=== PATIENT | male | born 1955 | race Caucasian/White ===

== ENCOUNTER → 2016-12-11 | Outpatient (CLI) | payer BC ==
[~2016-12-11] MED LIST: ASPI81TA21 PO; CAYENNE PEPPER PO; ERGO500037 PO; LEVO175T3 PO; LEVO200T6 PO; OXYC1TAB3 PO
--- NOTE | 2016-12-11 10:14 | DIAGNOSTIC IMAGING REPORT ---
KUB CLINICAL HISTORY: Nephrolithiasis. COMPARISON STUDY: KUB June 10, 2016. FINDINGS: Several small bilateral renal calculi measure up to 3 mm. No ureteral calculi are identified. The bowel gas pattern is normal. A 7 mm round density projecting of the left upper quadrant is unlikely to reflect a renal calculus. IMPRESSION: Small bilateral renal calculi. No ureteral calculi identified. Electronically signed by: Grady Pickens M.D. 12/11/2016 10:13 AM Dictated Date/Time: 12/11/2016 10:10 AM
== END | disposition home or self-care (01) ==
LOC: C.RAD1850 09:42
PROVIDERS: ATTEND Urology
DX: N20.0 Calculus of kidney (principal); N40.1 Benign prostatic hyperplasia with lower urinary tract symptoms

== ENCOUNTER → 2016-12-24 | Outpatient (CLI) | payer BC ==
--- NOTE | 2016-12-24 16:52 | DIAGNOSTIC IMAGING REPORT ---
L-SPINE MIN 4 VIEWS ROUTINE CLINICAL HISTORY: LOW BACK PAIN COMPARISON STUDY: 11/27/2015 FINDINGS: There are moderate multilevel degenerative changes present. There is calcification of posterior longitudinal ligament at the L2-3, L3-4, and L4-5 levels. No fractures or subluxations are visualized. No destructive lesions are evident. The findings remain similar to November 2015. There are equivocal faint renal calculi. IMPRESSION: 1. Moderate multilevel degenerative change. No acute fractures identified 2. Equivocal nephrolithiasis Electronically signed by: Angel Dale M.D. 12/24/2016 4:51 PM Dictated Date/Time: 12/24/2016 4:49 PM
== END | disposition home or self-care (01) ==
LOC: C.RAD1850 16:34
PROVIDERS: ATTEND Family Medicine
DX: M54.5 Low back pain (principal); N20.0 Calculus of kidney

== ENCOUNTER → 2017-01-22 | Outpatient (CLI) | payer BC ==
--- NOTE | 2017-01-28 08:58 | CODING QUERY MEDICAL NECESSITY ---
SUPPORTING DIAGNOSIS NEEDED A supporting diagnosis is required for the test/procedure performed on this patient in order for us to be reimbursed by the patient's insurance. Please provide a supporting diagnosis for the following test/procedure listed below next to the test name along with your signature. *If there is no additional diagnosis for this patient that would support the following test/procedure please document that below next to the test/procedure. Test(s)/Procedure(s) that require a supporting diagnosis: * DXA, BONE DENSITY AXIAL DIAGNOSIS: Provider Signature: Date: Thank you Xiomara [employer] Once completed, please kindly fax back to [phone] For questions please call [phone]
== END | disposition home or self-care (01) ==
LOC: C.MAMM 08:23
PROVIDERS: ATTEND Family Medicine
DX: Z13.820 Encounter for screening for osteoporosis (principal); E03.9 Hypothyroidism, unspecified

== ENCOUNTER → 2017-03-20 | Outpatient (CLI) | payer BC ==
--- NOTE | 2017-03-20 08:31 | DIAGNOSTIC IMAGING REPORT ---
ULTRASOUND TESTES AND SCROTUM CLINICAL HISTORY: Orchalgia. COMPARISON STUDY: No priors. TECHNIQUE: Real-time, grayscale, and color Doppler sonography of the testes and scrotum is performed. Images are reviewed in the transverse and longitudinal planes. FINDINGS: The testes are normal in size and homogeneous in echotexture. The right testis measures 5.0 x 2.3 x 2.9 cm and the left testis measures 3.8 x 3.2 x 2.0 cm. No intratesticular mass is seen. Tubular ectasia of the rete testis is incidentally noted on the right. Testicular blood flow is normal and symmetric. Normal Doppler waveforms are identified in both testes. The epididymal heads are normal in appearance. The right epididymal head measures 1.8 cm in length and the left epididymal head measures 1.2 cm in length. Large right epididymal head cysts measure up to 1.9 cm. A 3 mm epididymal head cyst is noted on the left. There is a small left-sided varicocele which measures up to 3 mm. No right-sided varicocele is seen and no hydrocele is identified. IMPRESSION: 1. Unremarkable sonographic appearance of the testes. 2. There are numerous bilateral epididymal head cysts, right more than left. 3. Small left-sided varicocele. Electronically signed by: Sharif Brady M.D. 03/20/2017 8:30 AM Dictated Date/Time: 03/20/2017 8:27 AM
== END | disposition home or self-care (01) ==
LOC: C.ULTR 07:37
PROVIDERS: ATTEND Urology
DX: N50.819 Testicular pain, unspecified (principal); N50.3 Cyst of epididymis; I86.1 Scrotal varices

== ENCOUNTER 2017-07-30 08:26 | Inpatient (IN) | payer BC ==
[2017-07-09 08:16] VITALS: BMI 36.0
--- NOTE | 2017-07-09 08:57 | PAT Medication Instructions ---
Service Date Jul 09, 2017. Current Home Medication List Aspirin Enteric Coated (Ecotrin Or Generic), 81 MG PO QAM Levothyroxine Sodium (Levothyroxine Sodium), 1 TAB PO UD Levothyroxine Sodium (Levothyroxine Sodium), 1 TAB PO UD Oxycodone Ir (Roxicodone Ir), 5 MG PO Q6H PRN for Pain [Cayenne Pepper Tabs], 300 MG PO QAM Medication Instructions For Your Scheduled Surgery - Hold the following medications 2 weeks prior to surgery: [Cayenne Pepper Tabs], 300 MG PO QAM - Take the following medications the morning of surgery with a sip of water OTHERWISE NOTHING TO EAT OR DRINK AFTER MIDNIGHT: Levothyroxine Sodium (Levothyroxine Sodium) Aspirin Enteric Coated (Ecotrin Or Generic), 81 MG PO QAM Oxycodone Ir (Roxicodone Ir), 5 MG PO Q6H PRN for Pain (may take if needed up to 4 hours prior to surgery) If you have any questions please call us at [phone] or [phone] or [phone]
--- NOTE | 2017-07-09 09:32 | DIAGNOSTIC IMAGING REPORT ---
CHEST 2 VIEWS ROUTINE CLINICAL HISTORY: 62 years-old Male presenting with preadmission chest x-ray. TECHNIQUE: PA and lateral views of the chest were obtained. COMPARISON: 12/26/2015. FINDINGS: Cardiomediastinal silhouette normal. Lungs and pleural spaces clear. Degenerative changes of the thoracic spine. Upper abdomen normal. IMPRESSION: 1. No acute cardiopulmonary disease. Electronically signed by: Alfie Herrera M.D. 07/09/2017 9:31 AM Dictated Date/Time: 07/09/2017 9:30 AM
[2017-07-09 10:05] LABS: BASO % 1.2 %; BASO ABS # 0.08 K/uL (0-0.2); EOS % 1.6 %; EOS ABS # 0.11 K/uL (0-0.5); HEMATOCRIT 45.2 % (42-52); HEMOGLOBIN 15.5 g/dL (14.0-18.0); IG# 0.02 K/uL (0.00-0.02); LYMPH % 26.9 %; LYMPH ABS # 1.86 K/uL (1.2-3.4); MEAN CELL VOLUME 88.5 fL (80-100); MEAN CORPUSCULAR HEMOGLOBIN 30.3 pg (25-34); MEAN CORPUSCULAR HGB CONC 34.3 g/dl (32-36); MEAN PLATELET VOLUME 11.1 fL (7.4-10.4); MONO % 9.1 %; MONO ABS # 0.63 K/uL (0.11-0.59); NEUT % 60.9 %; NEUT ABS # 4.21 K/uL (1.4-6.5); PLATELET COUNT 176 K/uL (130-400); RED CELL DISTRIBUTION WIDTH CV 13.2 % (11.5-14.5); RED CELL DISTRIBUTION WIDTH SD 42.8 fL (36.4-46.3); WHITE BLOOD COUNT 6.91 K/uL (4.8-10.8)
[2017-07-09 10:12] LABS: CREATININE 0.77 mg/dl (0.60-1.40)
--- NOTE | 2017-07-24 23:16 | HISTORY & PHYSICAL EXAMINATION ---
DATE OF ADMISSION: 07/30/2017 CHIEF COMPLAINT: Bilateral knee pain and discomfort, left side greater than right. HISTORY OF PRESENT ILLNESS: The patient is a 62-year-old gentleman from [place], who presents for surgical treatment of his knees. He has a long history of knee problems dating back to 38 years or so ago. He has had both of his knees scoped on 2 different occasions. Over the years, he has developed persistent and progressive bilateral knee pain and discomfort. The left side is actually worse than the right. He has increased pain with weightbearing. The more he walks, the more it hurts. He is having trouble even getting around any significant degree. He has nighttime pain. He would like to proceed with knee replacement surgery. PAST MEDICAL HISTORY: 1. Irregular heart palpitations. 2. Severe sleep apnea with CPAP machine. 3. Hypothyroidism status post thyroid resection. 4. Lumbar spine arthritis. 4. Elevated PSA. PAST SURGICAL HISTORY: Include: 1. Bilateral knee scopes. 2. Thyroid resection for cancer 4 years ago. 3. Kidney stones/lithotripsy x3. ALLERGIES: 1. TRAMADOL, WHICH CAUSES ITCHING. 2. RED DYE. 3. IODINE CONTRAST MATERIAL. CURRENT MEDICINES: Include: 1. Aspirin 81 mg. 2. Motrin 400 mg a day. 3. Cayenne 300 mg a day. 4. Synthroid 175 mcg a day. 5. Oxycodone 5 mg a day as needed for pain. SOCIAL HISTORY: A 62-year-old male. He currently lives in [place]. He is a retired property staff accountant. He does not smoke. FAMILY HISTORY: Significant for heart disease, diabetes, leukemia, thyroid disease. REVIEW OF SYSTEMS: Negative for diabetes, neurologic problems, vascular problems or bleeding disorders. He does have pretty severe sleep apnea. PHYSICAL EXAMINATION: GENERAL: Physical examination reveals a healthy, pleasant, middle-aged male. He looks to be in pretty good health. HEENT: Benign. NECK: Supple. No lymphadenopathy. LUNGS: Clear to auscultation. HEART: Regular rate and rhythm. ABDOMEN: Soft, nontender, nondistended. EXTREMITIES: Grossly neurovascularly intact except as follows: Examination of both knees reveals the patient walks independently. He has varus alignment to both knees with a varus stress bilaterally. He has bony hypertrophy both sides pretty significant. Range of motion on the right is 10-120 and left is 10-125. There is no clinical instability. X-RAYS: X-rays of both knees were reviewed. It shows advanced bilateral knee DJD. He has complete loss of his joint space on both sides. The right side is a bit worse radiographically. He has subchondral sclerosis with tibiofemoral subluxation on both sides. ASSESSMENT: A 62-year-old male with history of multiple knee surgeries in the past with advanced bilateral knee degenerative joint disease. The left side is more symptomatic than right. I do think he is a good candidate to do both knees at the same time. PLAN: We are going to take him to the operating room and do a left total knee replacement. The risks and benefits of this procedure were explained to the patient including but not limited to DVT, PE, , infection, neurological injury, vascular injury, bleeding problem, pain, limited range of motion, stiffness, failure to relief symptoms, incomplete relief of symptoms, need for further surgery in the future, fracture, leg length inequality, nerve palsy, etc. The patient understands and desires to proceed. Informed consent was obtained. We will see how he does with his left knee and we may consider right knee surgery [address] He does have severe sleep apnea. He is going to bring his CPAP machine to the hospital. As far as discharge plans, he is going to be discharged to home using the [employer] program.
[~2017-07-30] VITALS: Ht 182.9 cm; Wt 120.2 kg
[2017-07-30] VITALS (8 sets, daily range): BP systolic 98–129; BP diastolic 3–95; PULSE 52–79; TEMP 36.5–36.8; O2SAT 92–97; Ht 182.9 cm; Wt 120.2 kg
[~2017-07-30 08:26] MED LIST changes: +ACETAMINOPHEN 500 MG TAB PO SCH; +BUPIVACAINE 0.25% 30 ML VIAL ONE; +BUPIVACAINE 0.5 % 5 MG/1 ML PF 10ML VIAL ONE; +CEFAZOLIN 3000MG IV PUSH 15 ML IV SCH; -ERGO500037 PO; +FAMOTIDINE 20 MG TAB PO SCH; +GABAPENTIN 300 MG CAP PO SCH; +LACTATED RINGER'S 1000ML 1,000 ML IV SCH; +LACTATED RINGER'S 1000ML 500 ML IV SCH; +LACTATED RINGER'S 1000ML IV SCH; +SCOPOLAMINE 1.5 MG TDSY TD SCH; +TRANEXAMIC ACID INJ 1,000 MG in SYRINGE 0 ML IV SCH
[2017-07-30] MEDS ORDERED: ATROPINE SULFATE 0.1 MG/ML 5ML SYR IV PRN (09:15)
[2017-07-30] MEDS ORDERED: EpHEDrine SULFATE INJ 50 MG/ML AMP IV PRN (09:15)
[2017-07-30] MEDS ORDERED: ONDANSETRON INJ 2 MG/ML 2 ML VIAL IV PRN (09:15)
--- NOTE | 2017-07-30 10:20 | History & Physical Bridge Note ---
H&P Re-Evaluation Bridge Note: I have examined the patient, reviewed the History & Physical and in the interval since the performance of the History & Physical I have noted the following changes of clinical significance: No changes noted
[2017-07-30] MEDS ORDERED: MIDAZOLAM HCL 1 MG/ML 2ML VIAL ONE ×2 (10:24→12:13)
[2017-07-30] MEDS ORDERED: FENTANYL CITRATE INJ 50 MCG/1 ML 2 ML VIAL ONE (10:24)
[2017-07-30] MEDS ORDERED: LIDOCAINE HCL 2% 2 ML VIAL (20MG/ML) ONE (10:25)
[2017-07-30] MEDS ORDERED: ONDANSETRON INJ 2 MG/ML 2 ML VIAL ONE (10:25)
[2017-07-30] MEDS ORDERED: BACITRACIN 50000 UNIT VIAL ONE (11:19)
[2017-07-30] MEDS ORDERED: BUPIVACAINE LIPOSOME 1/3% 266 MG/20 ML VIAL INFIL ONE (11:19)
[2017-07-30] MEDS ORDERED: SODIUM CHLORIDE 0.9% PF 50 ML VIAL ONE (11:19)
[2017-07-30] MEDS ORDERED: BUPIVACAINE/EPINEPHRINE 0.25% 1:200,000 30 ML VIAL ONE (11:19)
[2017-07-30] MEDS: BUPIVACAINE LIPOSOME 266 MG, BUPIVACAINE/EPINEPHRINE INJ 50 ML, SODIUM CHLORIDE 0.9% PF... INFIL SCH ×6 (13:14→16:12)
--- NOTE | 2017-07-30 13:44 | [facility] Post Operative Brief Note ---
Immediate Operative Summary Operative Date Jul 30, 2017. Pre-Operative Diagnosis Left Knee Degenerative Joint Disease Post-Operative Diagnosis Left Knee Degenerative Joint Disease Procedure(s) Performed Left Total Knee Arthroplasty Surgeon Dr. Thomas Cedillo Senior Licensing Manager Surgeon(s) Yung Galindo PA-c Estimated Blood Loss 50 ML Findings Left Knee DJD Fluids (cc crystalloids) 1600 cc Specimens Permanent Specimen A: Bone and Tissue Left Knee Drains None Anesthesia Spinal Complication(s) None Disposition Recovery Room / PACU
[2017-07-30] MEDS ORDERED: BISACODYL 10 MG SUPP PR PRN (13:45)
[2017-07-30] MEDS ORDERED: ZOLPIDEM TARTRATE 5 MG TAB PO PRN (13:45)
[2017-07-30] MEDS ORDERED: TAMSULOSIN HCL 0.4 MG CAP PO PRN (13:45)
[2017-07-30] MEDS ORDERED: ALUMINUM/MAGNESIUM/SIMETH (MAALOX MAX) 30 ML UDC PO PRN (13:45)
[2017-07-30] MEDS ORDERED: DiphenhydrAMINE HCL 50 MG/ML VIAL IV PRN (13:45)
[2017-07-30] MEDS ORDERED: MAGNESIUM HYDROXIDE SUSP 30 ML UDC PO PRN (13:45)
--- NOTE | 2017-07-30 14:35 | DIAGNOSTIC IMAGING REPORT ---
L KNEE 1 OR 2 VIEWS ROUTINE CLINICAL HISTORY: AP/LATERAL IN PACU LEFT KNEE postoperative pain COMPARISON: None. DISCUSSION: Anatomic alignment status post total left knee arthroplasty. Good contact between prosthetic and underlying bone. Surgical drains are in position. Soft tissue postoperative change IMPRESSION: Anatomic alignment status post total left knee arthroplasty. The above report was generated using voice recognition software. It may contain grammatical, syntax or spelling errors. Electronically signed by: Isaías Gerardo M.D. 07/30/2017 2:34 PM Dictated Date/Time: 07/30/2017 2:33 PM
--- NOTE | 2017-07-30 14:50 | Anesthesiology Progress Note ---
Anesthesia Post Op Note Date & Time Jul 30, 2017 at 14:50 Vital Signs Pain Intensity: 0 Vital Signs Past 12 Hours Date Time Temp Pulse Resp B/P (MAP) Pulse Ox O2 Delivery O2 Flow Rate FiO2 07/30/17 14:40 36.4 54 16 102/61 97 Nasal Cannula 2 07/30/17 14:30 61 16 98/71 97 Nasal Cannula 2 07/30/17 14:20 63 16 121/68 97 Nasal Cannula 2 07/30/17 14:10 69 16 106/91 97 Nasal Cannula 2 07/30/17 14:00 62 16 123/70 97 Nasal Cannula 2 07/30/17 13:54 36.2 65 16 117/69 98 Nasal Cannula 07/30/17 08:47 36.8 79 20 129/95 95 Room Air Notes Mental Status: alert / awake / arousable, participated in evaluation Pt Amnestic to Procedure: Yes Nausea / Vomiting: adequately controlled Pain: adequately controlled Airway Patency, RR, SpO2: stable & adequate BP & HR: stable & adequate Hydration State: stable & adequate Neuraxial Anesthesia: was administered, sensory block is resolving Anesthetic Complications: no major complications apparent
[2017-07-30] MEDS: CHECK SCOPOLAMINE PATCH PLACEMENT SCH (16:11)
--- NOTE | 2017-07-30 16:12 | OPERATIVE REPORT ---
DATE OF OPERATION: 07/30/2017 SURGEON: Thomas Cedillo MD EXTENSION SERVICE ADVISOR: SREEDHAR Treadwell PREOPERATIVE DIAGNOSIS: Left knee degenerative joint disease. POSTOPERATIVE DIAGNOSIS: Same. PROCEDURE PERFORMED: Left cemented posterior stabilized total knee arthroplasty. COMPLICATIONS: None. ESTIMATED BLOOD LOSS: 50 mL. FLUID REPLACEMENT: 1600 mL of crystalloid fluid replacement. TOURNIQUET TIME: 59 minutes at 300 mmHg. ANESTHESIA: Spinal with adductor canal block. OPERATIVE INDICATIONS: The patient is a 62-year-old male who has had a long history of bilateral knee pain and discomfort. He has had both of his knees scoped in the past, but nothing done in the past 30 years. He has developed progressive and persistent increasing bilateral knee pain and discomfort. The left knee was worse than the right clinically, despite the worst radiographic appearance of the right side. He elected to proceed with a left total knee arthroplasty. OPERATIVE IMPLANTS: Operative implants consisted of: 1. Biomet Vanguard size 75 left posterior stabilized femoral component. 2. Biomet size 79 tibial tray. 3. A 10 mm posterior stabilized polyethylene insert. 4. A 34 x 8.5 all poly patella. OPERATIVE PROCEDURE: The patient taken to the operating room, identified and placed on the operating table in supine position. All contact areas were appropriately padded. IV antibiotics were provided by anesthesia team. A spinal anesthetic and adductor canal block had been provided in the holding area. Streeter catheter was placed in sterile fashion. A left thigh tourniquet was then placed and left lower extremity was then prepped and draped in the usual sterile fashion. Left leg was elevated and exsanguinated with Esmarch and tourniquet was placed at 300 mmHg. An anterior approach to the left knee was then performed through a longitudinal incision centered over the patella. Sharp dissection was carried out through the subcutaneous tissue down to the level of the extensor mechanism. A medial parapatellar arthrotomy incision was made. Some subperiosteal dissection was carried out medially. The fat pad was resected from beneath the patellar tendon. The lateral patellofemoral ligament was released. The patella was everted and knee was flexed. The osteophytes were taken off the distal femur. The ACL and PCL were then released from the distal femur and the tibia subluxated anteriorly. The external tibial alignment jig was then placed in the anterior face of the tibia and adjusted 16 mm medially. Proximal tibial cut was made to remove about a millimeter of bone from the most deficient aspect of the tibial plateau. The tibia was then sized to a size 79. Some osteophytes were taken off medial and posteromedially. Attention was then drawn to the femur. The distal femur was entered with a sharp drill. Intramedullary canal was suctioned. A left 6-degree valgus cutting guide was placed. Distal femoral cutting block was pinned in place. Distal femoral cut was made to take an additional 3 mm of bone off the distal femur. The femur was then sized to a size 75. We did downsize this several millimeters. The AP cutting block was pinned parallel to the epicondylar axis, which was 4 degrees of external rotation. The anterior cut, anterior chamfer, posterior cut, and posterior chamfer cuts were made. Box cutting guide was placed and adjusted slightly lateral and the box cut was made. The knee was flexed. The remnants of the medial and lateral menisci were excised. The osteophytes were taken off the posterior aspect of the femur. Trial femoral component was placed. Tibial tray was pinned in maximum external rotation and the drill and stem punch were used to create defect in proximal tibia for the tibial tray. The knee was then trialed and a 10 mm insert fit most appropriately. Attention was then drawn to the patella. The patella was cleaned of all soft tissues. Patellar thickness measured 24 mm in thickness and was cut down to 15. It was sized to a size 34 patella. Lug holes were drilled for a 34 patella. Lateral osteophyte was removed. Patellar button was placed. Knee was taken through range of motion and the patella tracked nicely with no thumbs test. Attention was then drawn toward placement of the permanent components. All trial components were removed. Bone plug was placed in the distal femur to limit blood loss. A double batch of Palacos G cement was mixed. A left size 75 posterior stabilized femoral component, a size 79 tibial tray, 10 mm posterior stabilized polyethylene insert, and a 34 x 8.5 all poly patella were then cemented in place. The knee was brought out into full extension until cement hardened. A final cement check was then performed. Pericapsular tissues were injected with a total of 100 mL of a combination of 20 mL of Exparel, 30 mL of normal saline, and 50 mL of 0.25% Marcaine with epinephrine. The patient did receive 1 gram of tranexamic acid. The tourniquet was then let down for final tourniquet time of 59 minutes. Hemostasis was assured with use of electrocautery. The wound was once again irrigated. The extensor mechanism was then closed with a combination of #1 PDS suture and #1 Vicryl suture in a [id number] fashion. Extensor mechanism was checked and found to be intact. The subcutaneous tissues were then closed with 2-0 Dexon suture in a buried interrupted fashion. Skin was closed skin alyssa. Leg was then cleaned and dried and a sterile dressing of Xeroform, 4 x 4, sterile cast padding and Ed bandage were applied. The patient then transferred to the recovery room in stable condition. The patient tolerated the procedure without complications. All needle and sponge counts were correct at the end of the operation. I attest to the content of the Intraoperative Record and any orders documented therein. Any exception s are noted below.
[2017-07-30] MEDS: D5W AND 1/2NSS + 20MEQ KCL 1,000 ML IV SCH (16:47)
[2017-07-30] MEDS: ACETAMINOPHEN 500 MG TAB PO SCH ×2 (17:40→22:51)
[2017-07-30] MEDS: FERROUS GLUCONATE 324 MG TAB PO SCH (18:01)
[2017-07-30] MEDS: KETOROLAC TROMETHAMINE 30 MG/ML VIAL IV. SCH (18:01)
[2017-07-30] MEDS: CEFAZOLIN IV 2,000 MG in SYRINGE 0 ML IV SCH (20:03)
[2017-07-30] MEDS: OXYCODONE HCL IR 5 MG TAB (IMMEDIATE RELEASE) PO PRN (20:12)
[2017-07-30] MEDS: TAPENTADOL ER 50 MG TABCR PO SCH (21:00)
[2017-07-30] MEDS: SENNA 8.6 MG TAB PO SCH (21:11)
[2017-07-30] MEDS: ASPIRIN 325 MG ECTAB PO SCH (21:11)
[2017-07-30] MEDS: DOCUSATE SODIUM 100 MG CAP PO SCH (21:11)
[2017-07-30] MEDS ORDERED: TRANEXAMIC ACID INJ 1,000 MG in SODIUM CHLORIDE 0.9% 100ML 100 ML IV SCH (22:00)
[2017-07-31] MEDS: CHECK SCOPOLAMINE PATCH PLACEMENT SCH ×4 (00:40→23:28)
[2017-07-31] MEDS: KETOROLAC TROMETHAMINE 30 MG/ML VIAL IV. SCH ×6 (00:43→23:43)
[2017-07-31] MEDS: D5W AND 1/2NSS + 20MEQ KCL 1,000 ML IV SCH ×3 (00:43→15:26)
[2017-07-31 04:15] VITALS: BP 96/59; PULSE 68; TEMP 36.7; O2SAT 92
[2017-07-31] MEDS: CEFAZOLIN IV 2,000 MG in SYRINGE 0 ML IV SCH (04:24)
[2017-07-31] MEDS: ACETAMINOPHEN 500 MG TAB PO SCH ×3 (05:40→20:42)
[2017-07-31] MEDS ORDERED: NURSING DECISION MEDICATION ORDER SCH (05:45)
[2017-07-31] MEDS: LEVOTHYROXINE 175 MCG TAB PO SCH (05:53)
[2017-07-31 06:34] LABS: HEMATOCRIT 38.2 % (42-52); HEMOGLOBIN 12.8 g/dL (14.0-18.0); MEAN CORPUSCULAR HEMOGLOBIN 29.8 pg (25-34); MEAN CORPUSCULAR HGB CONC 33.5 g/dl (32-36); MEAN PLATELET VOLUME 10.9 fL (7.4-10.4); PLATELET COUNT 166 K/uL (130-400); RED CELL DISTRIBUTION WIDTH CV 13.3 % (11.5-14.5); RED CELL DISTRIBUTION WIDTH SD 43.1 fL (36.4-46.3); WHITE BLOOD COUNT 11.29 K/uL (4.8-10.8)
[2017-07-31 06:54] VITALS: BP 100/62; PULSE 66; TEMP 37.1; O2SAT 93
[2017-07-31 07:04] LABS: CREATININE 0.86 mg/dl (0.60-1.40); POTASSIUM 3.9 mmol/L (3.5-5.1)
--- NOTE | 2017-07-31 07:29 | PROGRESS NOTE ---
DATE: 07/31/2017 SUBJECTIVE: A 62-year-old gentleman postop day 1 from a left knee replacement. He is doing pretty well. His pain is controlled. No chest pain or shortness of breath. Not feeling dizzy or lightheaded. OBJECTIVE: VITAL SIGNS: Temperature 37.1. Vital signs stable. GENERAL: Shows a pleasant, middle-aged male. He is sitting up in bed and doing his heel props, looks reasonably comfortable. LUNGS: Clear to auscultation. HEART: Regular rate and rhythm. ABDOMEN: Soft, nontender, nondistended. EXTREMITIES: Grossly neurovascularly intact except as follows: Examination of the left lower extremity reveals the dressing to be clean, dry and intact. Leg is well aligned. He can dorsiflex and plantarflex his foot appropriately. He is neurologically intact. LABORATORY DATA: Hemoglobin 12.8, hematocrit 38.2. Electrolytes are stable. ASSESSMENT: A 62-year-old gentleman postop day 1 from a left knee replacement, doing pretty well. Pain is reasonably well controlled. He is neurologically intact. PLAN: 1. DVT prophylaxis including thigh-high TEDs, SCDs, and aspirin twice a day. 2. PT/OT. Weightbearing as tolerated. Left total knee protocol. 3. Pain control, doing pretty well with current pain regimen. 4. Disposition: He is hoping to be discharged to home likely with some home health once adequately recovered.
[2017-07-31] MEDS: ONDANSETRON INJ 2 MG/ML 2 ML VIAL IV PRN ×2 (07:56→15:33)
[2017-07-31] MEDS: FERROUS GLUCONATE 324 MG TAB PO SCH ×3 (07:57→17:45)
[2017-07-31] MEDS: TAPENTADOL ER 50 MG TABCR PO SCH ×2 (08:23→20:59)
[2017-07-31] MEDS: MULTIVITAMIN TAB PO SCH (08:23)
[2017-07-31] MEDS: DOCUSATE SODIUM 100 MG CAP PO SCH ×2 (08:24→20:59)
[2017-07-31] MEDS: PANTOprazole SOD 40 MG TAB PO SCH (08:25)
[2017-07-31] MEDS: ASPIRIN 325 MG ECTAB PO SCH ×2 (08:25→20:59)
[2017-07-31] MEDS: OXYCODONE HCL IR 5 MG TAB (IMMEDIATE RELEASE) PO PRN ×3 (08:33→19:12)
[2017-07-31] MEDS ORDERED: CAYENNE PEPPER PO SCH (09:00)
[2017-07-31] MEDS: METOCLOPRAMIDE HCL INJ 5 MG/ML 2 ML VIAL IV PRN (11:26)
[2017-07-31 12:36] VITALS: BP 116/77; PULSE 90; TEMP 37.2; O2SAT 93
[2017-07-31] MEDS: MoRPHine SULFATE 2 MG/ML CARP IV PRN ×2 (15:34→18:23)
[2017-07-31 15:48] VITALS: BP 120/75; PULSE 92; TEMP 37.4; O2SAT 92
[2017-07-31] MEDS: SENNA 8.6 MG TAB PO SCH (20:59)
[2017-07-31] MEDS ORDERED: OXYC1TAB3 PO (21:28)
[2017-07-31] MEDS ORDERED: ASPEC325 PO (21:28)
[2017-07-31] MEDS ORDERED: ACET-24 PO (21:28)
--- NOTE | 2017-07-31 21:31 | Discharge Instructions ---
Discharge Instructions Date of Service Jul 31, 2017. Admission Reason for Admission: Left Knee Degenerative Joint Disease Discharge Discharge Diagnosis / Problem: Left Knee Replacement Discharge Goals Goal(s): Decrease discomfort, Improve function, Increase independence, Improve disease control, Therapeutic intervention Activity Recommendations Activity Limitations: per Instructions/Follow-up section . Instructions / Follow-Up Instructions / Follow-Up ACTIVITY RECOMMENDATIONS: Physical Therapy: * You will go to physical therapy three times each week for four to six weeks after your surgery in order to regain your knee range of motion and to retrain your knee to work properly. * It is just as important to make sure you are getting your knee perfectly straight as it is to regain your knee bend. * Taking a pain pill an hour before therapy can help you have a more productive and comfortable therapy session. Home Exercise: * You were shown a series of exercises (heel props, heel slides, etc.) in the hospital. Do these exercises three to four times each day including the exercises you were shown in physical therapy. Walking: * Get up and walk several times each day. For the first four weeks, try not to stand or walk for more than one hour at a time. If you do stand or walk for more than one hour, you will not hurt anything, but your knee and leg will likely swell. * As you feel comfortable, you may change from the walker or crutches to a cane and then to independent walking. MEDICATIONS: New Medicine: * You will likely be taking one or more of these medications: 1. Oxycodone - A quick and shorter-acting pain medication. Take one to two tablets every four to six hours to lessen your pain. 2. Aspirin - Thins your blood to lessen the chance of forming a blood clot. * The most common side effects of pain medicine and iron are nausea and constipation. If nausea or constipation is too much of a problem or if you have any questions about your new medicines or doses, call [facility] at . We will try to help you manage these issues. VERY IMPORTANT TO READ AND REVIEW" Pain: * The immediate post-operative period after knee replacement surgery is often quite painful. * You are given a prescription for pain medicine. You should take it, as directed, when you need it, especially before physical therapy and before going to bed. Pain that interferes with sleep is very common and can last several months. * You will likely need pain medicine for the first four to six weeks. It will not stop all of the pain. The pain will lessen and as you feel better, you may change to milder pain medicine such as Tylenol. * The most common side effects of pain medicine are nausea and constipation, so don't take more than you need. SPECIAL CARE INSTRUCTIONS: TEDs/Elastic Stockings: * The white elastic stockings help limit swelling and prevent blood clots from forming in your legs. The more you wear them, the more they work. * Wear them for six weeks after knee replacement surgery and four weeks after partial knee replacement. Prevention of Infection: * Take antibiotics one hour before any dental cleaning, dental work, urological procedure, gastrointestinal procedure or any invasive surgery in order to prevent your new joint from getting infected. * You may get the antibiotics from the doctor performing the procedure or you may call our office at before and we will call in a prescription to the pharmacy of your choice. Things to Watch For: * Drainage from the incision site that occurs more than one week after your surgery. * Severely increased knee/leg pain or swelling. * Increased redness at the incision site. * Fever above 102 degrees Fahrenheit. * Unusual chest pain or shortness of breath. * Unusual pain or burning with urination. Call [facility] at with any of the above problems or if you have any questions about your medicines or recovery. FOLLOW UP VISIT: Make an appointment to see your doctor for approximately two weeks after surgery for a progress check and staple removal by calling the office at . Current Hospital Diet Patient's current hospital diet: Regular Diet Discharge Diet Recommended Diet: Regular Diet Procedures Procedures Performed: Left Total Knee Arthroplasty Pending Studies Studies pending at discharge: no Medical Emergencies . Who to Call and When: Medical Emergencies: If at any time you feel your situation is an emergency, please call [phone] immediately. . Non-Emergent Contact Non-Emergency issues call your: Surgeon . "Provider Documentation" section prepared by Thomas Cedillo. . VTE Core Measure Inpt VTE Proph given/why not?: Other Anticoagulation, T.E.D. Stockings, SCD's
[2017-07-31 23:11] VITALS: BP 131/81; PULSE 88; TEMP 37.3; O2SAT 92
[2017-08-01] MEDS: ACETAMINOPHEN 500 MG TAB PO SCH (06:00)
[2017-08-01] MEDS: LEVOTHYROXINE 175 MCG TAB PO SCH (06:09)
[2017-08-01] MEDS: KETOROLAC TROMETHAMINE 30 MG/ML VIAL IV. SCH ×2 (06:10→11:30)
[2017-08-01 07:24] VITALS: BP 114/74; PULSE 91; TEMP 37; O2SAT 92
[2017-08-01] MEDS: CHECK SCOPOLAMINE PATCH PLACEMENT SCH (07:33)
[2017-08-01] MEDS: ONDANSETRON INJ 2 MG/ML 2 ML VIAL IV PRN (07:35)
[2017-08-01] MEDS: FERROUS GLUCONATE 324 MG TAB PO SCH ×2 (08:48→10:52)
[2017-08-01] MEDS: MULTIVITAMIN TAB PO SCH (08:49)
[2017-08-01] MEDS: PANTOprazole SOD 40 MG TAB PO SCH (08:49)
[2017-08-01] MEDS: TAPENTADOL ER 50 MG TABCR PO SCH (08:53)
[2017-08-01] MEDS: OXYCODONE HCL IR 5 MG TAB (IMMEDIATE RELEASE) PO PRN (08:55)
[2017-08-01] MEDS: METOCLOPRAMIDE HCL INJ 5 MG/ML 2 ML VIAL IV PRN (09:51)
[2017-08-01] MEDS: ASPIRIN 325 MG ECTAB PO SCH (09:52)
[2017-08-01] MEDS: DOCUSATE SODIUM 100 MG CAP PO SCH (09:52)
[2017-08-01 10:53] VITALS: BP 114/74; PULSE 91; TEMP 37; O2SAT 92
[2017-08-01] MEDS ORDERED: ONDA4TAB10 SL (12:59)
--- NOTE | 2017-08-01 15:14 | PROGRESS NOTE ---
DATE: 08/01/2017 DATE: 08/01/2017 SUBJECTIVE: A 62-year-old gentleman postop day 2 from a left knee replacement, doing pretty well. Quite a bit of thigh pain yesterday but seems to be improved today. No chest pain or shortness of breath. Not feeling dizzy or lightheaded. OBJECTIVE: VITAL SIGNS: Temperature is 37.0. Vital signs stable. PHYSICAL EXAMINATION: GENERAL: Reveals a healthy, pleasant, middle-aged male. He is sitting up in bed, looks pretty comfortable. LUNGS: Clear to auscultation. HEART: Regular rate and rhythm. ABDOMEN: Soft, nontender, nondistended. EXTREMITY EXAMINATION: Grossly neurovascularly intact except as follows: Examination of the left leg reveals the dressing to be clean, dry and intact. Leg is well aligned. Calf is soft and supple. He does have a little soreness in his quad with palpation and a little bit of swelling in this area. Nothing severe and not tense. He is neurologically intact. ASSESSMENT: A 62-year-old male postop day 2 from a left knee replacement, doing well. Pain is controlled. He has had some nausea. PLAN: 1. DVT prophylaxis including thigh-high TEDs, SCDs, and aspirin twice a day. 2. PT/OT. Weight bear as tolerated. Left total knee protocol. 3. Pain control. Doing reasonably well with current pain regimen. 4. Nausea. We are going to send him home on some Zofran. 5. Disposition. He is planning to be discharged home with home health later today.
[2017-08-03] MEDS ORDERED: LEVOTHYROXINE 200 MCG TAB PO SCH (07:00)
== END 2017-08-01 14:18 | disposition home health service (06) | DRG 470 ==
LOC: C.ACU 08:26 → C.3E 13:49 → ENRESERV 15:33
PROVIDERS: ADMIT Orthopaedic Surgery Sports Medicine; ATTEND Orthopaedic Surgery Sports Medicine
PROC: 0SRD0J9 Replacement of Left Knee Joint with Synthetic Substitute, Cemented, Open Approach (ICD-10-PCS; principal; 2017-07-30 11:00)
DX: M17.12 Unilateral primary osteoarthritis, left knee (principal); G47.33 Obstructive sleep apnea (adult) (pediatric); E89.0 Postprocedural hypothyroidism; E66.9 Obesity, unspecified; Z68.36 Body mass index [BMI] 36.0-36.9, adult; Z98.890 Other specified postprocedural states; Z85.850 Personal history of malignant neoplasm of thyroid; Z87.442 Personal history of urinary calculi; Z79.1 Long term (current) use of non-steroidal anti-inflammatories (NSAID); Z79.82 Long term (current) use of aspirin; Z79.899 Other long term (current) drug therapy; Z91.041 Radiographic dye allergy status; Z82.49 Family history of ischemic heart disease and other diseases of the circulatory system; Z83.3 Family history of diabetes mellitus; Z83.49 Family history of other endocrine, nutritional and metabolic diseases; Z80.6 Family history of leukemia

== ENCOUNTER → 2017-08-07 | Outpatient (CLI) | payer BC ==
[~2017-08-07] MED LIST changes: +ACET-24 PO; -ACETAMINOPHEN 500 MG TAB PO SCH; +ASPEC325 PO; -ASPI81TA21 PO; -BUPIVACAINE 0.25% 30 ML VIAL ONE; -BUPIVACAINE 0.5 % 5 MG/1 ML PF 10ML VIAL ONE; -CEFAZOLIN 3000MG IV PUSH 15 ML IV SCH; -FAMOTIDINE 20 MG TAB PO SCH; -GABAPENTIN 300 MG CAP PO SCH; -LACTATED RINGER'S 1000ML 1,000 ML IV SCH; -LACTATED RINGER'S 1000ML 500 ML IV SCH; -LACTATED RINGER'S 1000ML IV SCH; +ONDA4TAB10 SL; -SCOPOLAMINE 1.5 MG TDSY TD SCH; -TRANEXAMIC ACID INJ 1,000 MG in SYRINGE 0 ML IV SCH
--- NOTE | 2017-08-11 09:49 | CODING QUERY NO DIAGNOSIS ---
: 1955 Valid Physician Order Needed A valid physician order must be submitted in order to properly bill for the service(s) provided, including date of service(s), valid diagnosis, and physician signature. If these tests are done on a recurring basis the original physician order must be submitted in order to code and bill for the service(s) provided. Please fax us the original, signed physician order so that we may expedite billing to [phone] DOS 08/07/2017 * Urinalysis * Urine C&S Thank you Qiana Almaguer [facility]
== END | disposition home or self-care (01) ==
LOC: C.LABSPEC 11:54
PROVIDERS: ATTEND Orthopaedic Surgery Sports Medicine
DX: Z01.89 Encounter for other specified special examinations (principal)

== ENCOUNTER → 2017-09-16 | Outpatient (CLI) | payer BC ==
--- NOTE | 2017-09-16 17:31 | DIAGNOSTIC IMAGING REPORT ---
KUB CLINICAL HISTORY: R35.0 Urinary frequency nephrocalcinosis COMPARISON STUDY: 12/11/2016 FINDINGS: Unchanged small calcification of the lower pole left kidney. The upper pole left kidney as well as the bulk of the right kidney obscured by overlying fecal material. No significant paravertebral calcifications. Nonobstructive bowel pattern. IMPRESSION: 1. Limited study due to extensive overlying bowel content. 2. Right kidney is poorly seen 3. Left kidney shows a small unchanging lower pole calcification. The upper pole is not diagnostically identified. The above report was generated using voice recognition software. It may contain grammatical, syntax or spelling errors. Electronically signed by: Isaías Gerardo M.D. 09/16/2017 5:30 PM Dictated Date/Time: 09/16/2017 5:28 PM
== END | disposition home or self-care (01) ==
LOC: C.LAB 16:59
PROVIDERS: ATTEND Nurse Practitioner Adult Health
DX: M54.9 Dorsalgia, unspecified (principal); R35.0 Frequency of micturition

== ENCOUNTER → 2017-09-19 | Outpatient (CLI) | payer BC ==
[2017-09-19 12:33] LABS: BLOOD UREA NITROGEN 13 mg/dl (7-18); CALCIUM 9.3 mg/dl (8.5-10.1); CARBON DIOXIDE 29 mmol/L (21-32); CREATININE 0.85 mg/dl (0.60-1.40); GLUCOSE 111 mg/dl (70-99); POTASSIUM 4.1 mmol/L (3.5-5.1); SODIUM 142 mmol/L (136-145)
== END | disposition home or self-care (01) ==
LOC: C.LAB 10:25
PROVIDERS: ATTEND Nurse Practitioner Adult Health
DX: M54.9 Dorsalgia, unspecified (principal); R35.0 Frequency of micturition

== ENCOUNTER → 2017-09-23 | Outpatient (CLI) | payer BC ==
[~2017-09-23] MED LIST changes: +OPTIRAY 320 IV PRN
--- NOTE | 2017-09-23 08:54 | DIAGNOSTIC IMAGING REPORT ---
ABD/PELVIS COMBO CT DOSE: 2237.74 mGycm HISTORY: Flank pain N40.1 TECHNIQUE: Multiaxial CT images of the abdomen and pelvis were performed pre and post intravenous contrast enhancement. A dose lowering technique was utilized adhering to the principles of ALARA. COMPARISON STUDY: 01/24/2016 FINDINGS: Lung bases are clear. Liver enhances uniformly. 1 cm hypodensity central right hepatic lobe unchanged in the prior study. This may represent a small hepatic cyst. Gallbladder is negative for distention. The unenhanced component of the study shows several nonobstructing renal calcifications bilaterally. The obstructing calculus previously described dilatation of the upper pole collecting system left kidney is no longer appreciated. Renal parapelvic and cortical cysts are stable. Ureters opacify appropriately. There is no evidence for an obstructing calculus. Prostate is mildly enlarged. No significant abdominal pelvic or inguinal adenopathy. Bowel pattern is nonobstructive. Bladder is again midline. No significant pelvic or inguinal adenopathy. IMPRESSION: 1. Bilateral renal nephrocalcinosis. 2. No evidence for an obstructing urinary tract calculus. 3. Bilateral simple renal peripelvic and cortical cysts similar as compared to the prior study. 4. No evidence for hydronephrosis. 5. The obstructing calculus involving the upper pole left kidney on the prior study has passed. The above report was generated using voice recognition software. It may contain grammatical, syntax or spelling errors. Electronically signed by: Isaías Gerardo M.D. 09/23/2017 8:52 AM Dictated Date/Time: 09/23/2017 8:42 AM
== END | disposition home or self-care (01) ==
LOC: C.CTS 08:07
PROVIDERS: ATTEND Nurse Practitioner Adult Health
DX: N40.1 Benign prostatic hyperplasia with lower urinary tract symptoms (principal); E83.59 Other disorders of calcium metabolism; N29 Other disorders of kidney and ureter in diseases classified elsewhere; N28.1 Cyst of kidney, acquired

== ENCOUNTER 2017-11-14 04:49 | Inpatient (IN) | payer BC ==
[2017-11-06 09:39] VITALS: BMI 34.0
--- NOTE | 2017-11-08 10:38 | HISTORY & PHYSICAL EXAMINATION ---
DATE OF ADMISSION: 11/14/2017 CHIEF COMPLAINT: Right knee pain. HISTORY OF PRESENT ILLNESS: The patient is a 62-year-old gentleman who is now a little over 3 months out from a left knee replacement, doing well. He has got a long history of bilateral knee pain and discomfort. He had both knees scoped on multiple different occasions in the past. He had left knee replaced about 3-1/2 months ago and has done well from this. He continues to be bothered by right knee pain. It is global pain. The more he walks, the more it hurts. He is limited by his right knee and would like to have it fixed. Very minimal response to any further conservative care. PAST MEDICAL HISTORY: 1. Irregular heart palpitations. 2. Sleep apnea with CPAP machine. 3. Hypothyroidism, status post resection for cancer. 4. 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 5. Elevated PSA. PAST SURGICAL HISTORY: 1. Bilateral knee scopes in the past. The last one done 30 years ago. 2. Left knee replacement done, 07/30/2017. 3. Thyroid resection 4 years ago at [facility]. 4. Kidney stone/lithotripsy x3. ALLERGIES: TRAMADOL WHICH CAUSES ITCHING. ALSO, DESCRIBES ALLERGY TO RED DYE AND IODINE. CURRENT MEDICINES: Include: 1. Aspirin 81 mg daily. 2. Motrin p.r.n. 3. Cayenne 300 mg. 4. Synthroid 175 mcg a day. SOCIAL HISTORY: A 62-year-old male, lives in [place]. He is a retired intellectual property lawyer. Does not smoke. FAMILY HISTORY: Heart disease, diabetes, leukemia and thyroid disease. REVIEW OF SYSTEMS: Negative for diabetes, neurologic problems, vascular problem, bleeding disorders. No chest pain, no shortness of breath. No history of DVT or PE. PHYSICAL EXAMINATION: GENERAL: Shows a healthy, pleasant middle-aged male, looks to be in good health. HEENT: Benign. NECK: Supple. No lymphadenopathy. LUNGS: Clear to auscultation. HEART: Regular rate and rhythm. ABDOMEN: Soft, nontender, nondistended. EXTREMITIES: Grossly neurovascularly intact except as follows: Examination of the right knee reveals a varus alignment to his knee. He has got bony hypertrophy both medially and laterally, fairly stiff knee with about 10 degree flexion contracture and can only flex to about 95 degrees. No instability. No pain with hip motion. Examination of left knee reveals well-healed incision. Range of motion 0-120. Good straight leg raise. X-RAYS: X-ray of the right knee reviewed. Shows advanced right knee tricompartment DJD. He has complete loss of his joint space in all 3 compartments. He has tibial, femoral subluxation. He has got osteophytes in all 3 compartments. ASSESSMENT: A 62-year-old male, 3-1/2 months out from left knee replacement doing well, with advanced right knee degenerative joint disease. He has failed conservative treatment and would like to have his right knee replaced. PLAN: We will take him to the operating room and do a right total knee replacement. The risks and benefits of this procedure were explained to the patient include but not limited to DVT, PE, , infection, neurological injury, vascular injury, bleeding problem, pain, limited range of motion, stiffness, failure to relieve symptoms, incomplete relief of symptoms, need for further surgery in the future, fracture, leg length inequality, nerve palsy, persistent pain, etc. The patient understands and desires proceed. Informed consent was obtained. We did talk to him to bring the CPAP to the hospital. I am considering not using a tourniquet, as he had quite a bit thigh and tourniquet pain after his previous surgery. He should be able to be discharged to home with either home health or outpatient therapy.
[2017-11-14] VITALS (9 sets, daily range): BP systolic 99–136; BP diastolic 61–84; PULSE 52–78; TEMP 36.4–37; O2SAT 94–97; Ht 182.9 cm; Wt 115.9 kg
[~2017-11-14] VITALS: Ht 182.9 cm; Wt 115.9 kg
[~2017-11-14 04:49] MED LIST changes: -ACET-24 PO; -ASPEC325 PO; +ASPI81TA28 PO; -LEVO200T6 PO; -ONDA4TAB10 SL; -OPTIRAY 320 IV PRN; -OXYC1TAB3 PO
[2017-11-14] MEDS ORDERED: CEFAZOLIN 2000MG IV PUSH 15 ML IV SCH (06:00)
[2017-11-14] MEDS ORDERED: TRANEXAMIC ACID INJ 1,000 MG x 1 Bag Intra-Op IV SCH ×2 (06:00)
[2017-11-14] MEDS ORDERED: ACETAMINOPHEN 500 MG TAB PO SCH (06:00)
[2017-11-14] MEDS ORDERED: LACTATED RINGER'S 1000ML 500 ML IV SCH (06:00)
[2017-11-14] MEDS ORDERED: BUPIVACAINE LIPOSOME 266 MG, BUPIVACAINE/EPINEPHRINE INJ 50 ML, SODIUM CHLORIDE 0.9% PF... INFIL SCH ×3 (06:00)
[2017-11-14] MEDS ORDERED: METOCLOPRAMIDE HCL 10 MG TAB PO SCH (06:00)
[2017-11-14] MEDS ORDERED: GABAPENTIN 600 MG PO SCH (06:00)
[2017-11-14] MEDS ORDERED: LACTATED RINGER'S 1000ML 1,000 ML IV SCH (06:00)
[2017-11-14] MEDS ORDERED: FAMOTIDINE 20 MG TAB PO SCH (06:00)
[2017-11-14] MEDS ORDERED: LACTATED RINGER'S 1000ML IV SCH (06:00)
[2017-11-14] MEDS ORDERED: SCOPOLAMINE 1.5 MG TDSY TD SCH (06:00)
[2017-11-14] MEDS ORDERED: ROPIVACAINE 0.5% 5 MG/ML 30 ML VIAL ONE (06:30)
[2017-11-14] MEDS ORDERED: SODIUM CHLORIDE 0.9% PF 50 ML VIAL ONE (06:30)
[2017-11-14] MEDS ORDERED: BUPIVACAINE 0.5 % 5 MG/1 ML PF 10ML VIAL ONE (06:30)
[2017-11-14] MEDS ORDERED: EpINEphrine INJ 1MG/ML AMP 1 MG/ML AMP ONE (06:31)
[2017-11-14] MEDS ORDERED: BUPIVACAINE LIPOSOME 1/3% 266 MG/20 ML VIAL ONE (06:31)
[2017-11-14] MEDS ORDERED: BUPIVACAINE 0.25% 30 ML VIAL ONE (06:31)
[2017-11-14] MEDS ORDERED: BACITRACIN 50000 UNIT VIAL ONE (06:31)
[2017-11-14] MEDS ORDERED: MIDAZOLAM HCL 1 MG/ML 2ML VIAL ONE ×2 (06:33→06:36)
[2017-11-14] MEDS ORDERED: FENTANYL CITRATE INJ 50 MCG/1 ML 2 ML VIAL ONE (06:33)
[2017-11-14] MEDS ORDERED: PROPOFOL IV EMULSION 10 MG/ML 20 ML VIAL ONE ×2 (07:14→08:35)
[2017-11-14] MEDS ORDERED: ONDANSETRON INJ 2 MG/ML 2 ML VIAL ONE (07:15)
[2017-11-14] MEDS ORDERED: DEXAMETHASONE SOD INJ 4 MG/ML VIAL ONE (07:15)
[2017-11-14] MEDS ORDERED: PHENYLEPHRINE 100MCG/ML 5ML SYR ONE (07:48)
--- NOTE | 2017-11-14 08:49 | [facility] Post Operative Brief Note ---
Immediate Operative Summary Operative Date November 14, 2017. Pre-Operative Diagnosis Right Knee Advanced Degenerative Joint Disease Post-Operative Diagnosis Right Knee Advanced Degenerative Joint Disease Procedure(s) Performed Right Total Knee Arthroplasty Surgeon Dr. Cedillo Cdl Driver Surgeon(s) SREEDHAR Meléndez Estimated Blood Loss 300 ml Findings Consistent with Post-Op Diagnosis Fluids (cc crystalloids) 1200 cc Specimens A. Right Knee Bone and Tissue Drains None Anesthesia Type MAC Spinal Regional Complication(s) none Disposition Accompanied Pt To Recover: no Disposition: Recovery Room / PACU
[2017-11-14] MEDS ORDERED: BISACODYL 10 MG SUPP PR PRN (09:00)
[2017-11-14] MEDS ORDERED: CEFAZOLIN IV 2,000 MG in DEXTROSE 5% 50ML 50 ML IV SCH (09:00)
[2017-11-14] MEDS ORDERED: DiphenhydrAMINE HCL 50 MG/ML VIAL IV PRN (09:00)
[2017-11-14] MEDS ORDERED: TAMSULOSIN HCL 0.4 MG CAP PO PRN (09:00)
[2017-11-14] MEDS ORDERED: ZOLPIDEM TARTRATE 5 MG TAB PO PRN (09:00)
[2017-11-14] MEDS ORDERED: METOCLOPRAMIDE HCL INJ 5 MG/ML 2 ML VIAL IV PRN (09:00)
[2017-11-14] MEDS: DOCUSATE SODIUM 100 MG CAP PO SCH ×2 (09:00→21:53)
[2017-11-14] MEDS ORDERED: MAGNESIUM HYDROXIDE SUSP 30 ML UDC PO PRN (09:00)
[2017-11-14] MEDS: PANTOprazole SOD 40 MG TAB PO SCH (09:00)
[2017-11-14] MEDS ORDERED: ONDANSETRON INJ 2 MG/ML 2 ML VIAL IV PRN (09:00)
[2017-11-14] MEDS: TAPENTADOL ER 50 MG TABCR PO SCH ×2 (09:00→21:51)
[2017-11-14] MEDS ORDERED: SILVER SULFADIAZINE 1% CR 50 GM JAR EXT PRN (09:00)
[2017-11-14] MEDS: MULTIVITAMIN TAB PO SCH (09:00)
[2017-11-14] MEDS ORDERED: ALUMINUM/MAGNESIUM/SIMETH (MAALOX MAX) 30 ML UDC PO PRN (09:00)
[2017-11-14] MEDS: ASPIRIN 81 MG ECTAB PO SCH ×2 (09:00→21:52)
--- NOTE | 2017-11-14 09:15 | DIAGNOSTIC IMAGING REPORT ---
R KNEE 1 OR 2 VIEWS ROUTINE CLINICAL HISTORY: AP/LATERAL IN PACU RIGHT KNEE postoperative COMPARISON: None. DISCUSSION: Anatomic alignment posttotal right knee arthroplasty. Good contact between prosthetic and underlying bone. Expected soft tissue postoperative change. IMPRESSION: Anatomic alignment post total right knee arthroplasty The above report was generated using voice recognition software. It may contain grammatical, syntax or spelling errors. Electronically signed by: Isaías Gerardo M.D. 11/14/2017 9:13 AM Dictated Date/Time: 11/14/2017 9:09 AM
[2017-11-14] MEDS ORDERED: ATROPINE SULFATE 0.1 MG/ML 5ML SYR IV PRN (09:30)
[2017-11-14] MEDS ORDERED: EpHEDrine SULFATE INJ 50 MG/ML AMP IV PRN (09:30)
--- NOTE | 2017-11-14 09:32 | Anesthesiology Progress Note ---
Anesthesia Post Op Note Date & Time November 14, 2017 at 09:31 Vital Signs Pain Intensity: 0 Vital Signs Past 12 Hours Date Time Temp Pulse Resp B/P (MAP) Pulse Ox O2 Delivery O2 Flow Rate FiO2 11/14/17 09:30 36.4 62 18 98/64 96 Nasal Cannula 3 11/14/17 09:20 58 16 100/59 96 Nasal Cannula 3 11/14/17 09:10 70 14 104/57 93 Oxymask 5 11/14/17 09:00 67 14 94/63 95 Oxymask 5 11/14/17 08:54 36.8 70 14 105/64 95 Oxymask 5 11/14/17 05:41 37.0 52 18 136/84 94 Room Air Notes Mental Status: alert / awake / arousable, participated in evaluation Pt Amnestic to Procedure: Yes Nausea / Vomiting: adequately controlled Pain: adequately controlled Airway Patency, RR, SpO2: stable & adequate BP & HR: stable & adequate Hydration State: stable & adequate Neuraxial Anesthesia: was administered, sensory block is resolving Anesthetic Complications: no major complications apparent
[2017-11-14] MEDS: D5W AND 1/2NSS + 20MEQ KCL 1,000 ML IV SCH ×3 (11:27→23:30)
[2017-11-14] MEDS: FERROUS GLUCONATE 324 MG TAB PO SCH ×2 (12:39→17:35)
[2017-11-14] MEDS: KETOROLAC TROMETHAMINE 30 MG/ML VIAL IV. SCH ×3 (12:39→23:31)
[2017-11-14] MEDS: ACETAMINOPHEN 500 MG TAB PO SCH ×2 (13:43→21:52)
--- NOTE | 2017-11-14 14:39 | PROGRESS NOTE ---
DATE: 11/14/2017 SUBJECTIVE: A 62-year-old gentleman postop from a right knee replacement. He is doing well. Really having minimal pain. No chest pain or shortness of breath. Not feeling dizzy or lightheaded. OBJECTIVE: VITAL SIGNS: Temperature is 36.5. Vital signs stable. GENERAL: Physical examination shows a healthy, pleasant, middle-aged male. He is sitting on bed and talking to his . He looks comfortable. LUNGS: Clear to auscultation. HEART: Regular rate and rhythm. ABDOMEN: Soft, nontender, nondistended. EXTREMITIES: Grossly neurovascularly intact except as follows: Examination of the right leg reveals the leg to be well aligned. He can dorsiflex and plantarflex his foot appropriately. He has got brisk refill. X-RAYS: X-ray of the right knee from recovery room reviewed. It shows a right cemented posterior stabilized total knee arthroplasty. Components looked to be in good position. No signs of problems. ASSESSMENT: This is a 62-year-old gentleman postop from a right knee replacement, doing pretty well. Pain is controlled. He is neurologically intact. PLAN: 1. DVT prophylaxis including thigh-high TEDs, SCDs, and aspirin twice a day. 2. PT/OT. Weight bear as tolerated. Right total knee protocol. 3. Pain control, doing well with current pain regimen. 4. IV antibiotics x24 hours. 5. Disposition: Plan to discharge to home with some home health likely once adequately recovered.
[2017-11-14] MEDS: CEFAZOLIN IV 2,000 MG in SYRINGE 0 ML IV SCH ×2 (15:11→21:57)
--- NOTE | 2017-11-14 15:25 | OPERATIVE REPORT ---
DATE OF OPERATION: 11/14/2017 SURGEON: Thomas Cedillo MD GEOLOGICAL TECHNICAL OFFICER: SREEDHAR Treadwell PREOPERATIVE DIAGNOSIS: Right knee degenerative joint disease. POSTOPERATIVE DIAGNOSIS: Same. PROCEDURE PERFORMED: Right cemented posterior stabilized total knee arthroplasty. COMPLICATIONS: None. ESTIMATED BLOOD LOSS: 300 mL. FLUID REPLACEMENT: 1200 mL crystalloid fluid replacement. TOURNIQUET TIME: Not applicable as we did not use tourniquet. ANESTHESIA: Spinal with adductor canal block. DRAINS: None. SPECIMENS: Right knee sent for pathology. OPERATIVE INDICATIONS: The patient is a 62-year-old gentleman who has had a long history of bilateral knee pain and discomfort. He has had a history of multiple knee surgeries in the past. He underwent a left knee replacement 3-1/2 months ago and has done remarkably well from this. He has failed conservative treatment of his right knee and elected to proceed with total knee arthroplasty. OPERATIVE FINDINGS: Operative findings revealed advanced right knee DJD. Extensive grade 4 changes in all 3 compartments with tibial femoral subluxation and severe eburnation both medially and laterally. Large knee joint effusion. Osteophytes in all 3 compartments. OPERATIVE IMPLANTS: Operative implants consisted of: 1. Biomet Vanguard size 75 right posterior stabilized femoral component. 2. Biomet size 79 tibial tray. 3. A 10 mm posterior stabilized polyethylene insert. 4. A 34 x 8.5 all poly patella. OPERATIVE PROCEDURE: The patient was taken to the operating room, identified and placed on the operating table in supine position. All contact areas were appropriately padded. IV antibiotics provided by anesthesia team. A spinal anesthetic and adductor canal block had been provided in the holding area. Streeter catheter was placed in a sterile fashion. Right thigh tourniquet was placed but not used throughout the case as the major problem of pain was with his left leg was felt to be related to the tourniquet. We elected not to use a tourniquet for this case. The right leg was then prepped and draped in usual sterile fashion. An anterior approach of the right knee was then performed through a longitudinal incision centered over the patella. Sharp dissection was carried out through subcutaneous tissues down to the level of the extensor mechanism. A medial parapatellar arthrotomy incision was made. Some subperiosteal dissection was carried out medially. The fat pad was resected from beneath the patellar tendon. The lateral patellofemoral ligament was released. Patella was everted, and the knee was flexed. The ACL was chronically absent. The PCL was released from the distal femur and the tibia subluxated anteriorly. The external tibial alignment jig was then placed in the anterior face of the tibia and adjusted 16 mm medially. Proximal tibial cut was made to remove about a millimeter of bone from most deficient aspect of the medial tibial plateau. Some osteophytes were taken off medial and posteromedially. The tibia was then sized to a size 79. Attention was then drawn to the femur. The distal femur was entered with a sharp drill. The intramedullary canal was suctioned. A right 6-degree valgus cutting guide was placed. Distal femoral cutting block was pinned in place. Distal femoral cut was made to take an additional 3 mm of bone off the distal femur. The femur was then sized to a size 75. We did downsize this significantly. The AP cutting block was pinned parallel to the epicondylar axis, which was 4 degrees of external rotation. The anterior cut, anterior chamfer, posterior cut, posterior chamfer cuts were made. Box cutting guide was placed and adjusted slight lateral and the box cut was made. The knee was flexed. The remnants of the medial and lateral menisci were excised. The osteophytes were taken off the posterior aspect of the femur. A trial femoral component was placed. Tibial tray was pinned in maximum external rotation and drill and stem punch were used to create defect in proximal tibia for the tibial tray. The knee was then trialed and the 10 mm insert fit most appropriately. Attention was then drawn to patella. The patella was cleaned of all soft tissues. Patella thickness measured 24 mm in thickness and was cut down to 14. It was sized to a size 34 patella. Lateral osteophyte was removed. Patella button was placed. Knee was taken through range of motion and patella tracked nicely with no thumbs test. Attention was then drawn toward placing the permanent components. All trial components were removed. Bone plug was placed in the distal femur to limit blood loss. A double batch of Palacos G cement was mixed. A right size 75 posterior stabilized femoral component, size 79 tibial tray, 10 mm posterior stabilized polyethylene insert, and a 34 x 8.5 all poly patella then cemented in place. Knee was brought out into full extension until cement hardened. A final cement check was then performed. Pericapsular tissues were injected with a total of 100 mL of combination of 20 mL of Exparel, 30 mL of normal saline, 50 mL of 0.25% Marcaine with epinephrine. The patient did receive 1 gram of tranexamic acid. We then irrigated one final time. The extensor mechanism was then closed with a combination of #1 PDS suture and #1 Vicryl suture in a [id number] fashion. Extensor mechanism was checked and found to be intact. The subcutaneous tissues were then closed with #2 Dexon suture in a buried interrupted fashion. Skin was closed skin alyssa. Leg was then cleaned and dried and a sterile dressing of Xeroform, 4 x 4, sterile cast padding and Ed bandage were applied. The patient then transferred to the recovery room in stable condition. The patient tolerated the procedure well with no complication. All needle and sponge counts were correct at the end of the operation. I attest to the content of the Intraoperative Record and any orders documented therein. Any exception s are noted below.
[2017-11-14] MEDS ORDERED: TRANEXAMIC ACID INJ 1,000 MG in SODIUM CHLORIDE 0.9% 100ML 100 ML IV ONE (15:30)
[2017-11-14] MEDS: CHECK SCOPOLAMINE PATCH PLACEMENT SCH ×2 (16:03→23:31)
[2017-11-14] MEDS: OXYCODONE HCL IR 5 MG TAB (IMMEDIATE RELEASE) PO PRN ×2 (16:57→21:52)
[2017-11-14] MEDS: SENNA 8.6 MG TAB PO SCH (21:53)
[2017-11-15 03:25] VITALS: BP 97/62; PULSE 61; TEMP 36.5; O2SAT 97
[2017-11-15] MEDS: LEVOTHYROXINE 175 MCG TAB PO SCH (05:56)
[2017-11-15] MEDS: ACETAMINOPHEN 500 MG TAB PO SCH ×3 (05:57→21:00)
[2017-11-15] MEDS: KETOROLAC TROMETHAMINE 30 MG/ML VIAL IV. SCH ×4 (05:58→23:57)
[2017-11-15] MEDS: D5W AND 1/2NSS + 20MEQ KCL 1,000 ML IV SCH (05:59)
[2017-11-15 06:30] LABS: HEMATOCRIT 35.7 % (42-52); MEAN CELL VOLUME 86.2 fL (80-100); MEAN CORPUSCULAR HGB CONC 33.6 g/dl (32-36); MEAN PLATELET VOLUME 10.5 fL (7.4-10.4); PLATELET COUNT 172 K/uL (130-400); RED CELL DISTRIBUTION WIDTH CV 13.4 % (11.5-14.5); RED CELL DISTRIBUTION WIDTH SD 42.4 fL (36.4-46.3); WHITE BLOOD COUNT 12.89 K/uL (4.8-10.8)
[2017-11-15 07:05] LABS: CALCIUM 7.9 mg/dl (8.5-10.1); CREATININE 0.84 mg/dl (0.60-1.40); POTASSIUM 3.7 mmol/L (3.5-5.1)
[2017-11-15 07:44] VITALS: BP 92/55; PULSE 55; TEMP 36.7; O2SAT 97
--- NOTE | 2017-11-15 07:57 | PROGRESS NOTE ---
DATE: 11/15/2017 SUBJECTIVE: A 62-year-old gentleman postop day 1 from a right knee replacement. He is doing well. His pain is controlled. No chest pain or shortness of breath. Not feeling dizzy or lightheaded. OBJECTIVE: VITAL SIGNS: Temperature 36.5. Vital signs stable. GENERAL: Physical examination shows a pleasant, middle-aged male. He is sitting up in bed, looks pretty comfortable this morning. EXTREMITIES: Examination of the right leg reveals the dressing to be clean, dry, and intact. He can dorsiflex and plantarflex his foot appropriately. He is neurologically intact. LABORATORY DATA: Hemoglobin 12.0, hematocrit 35.7. White cell count 12.89. Electrolytes are stable. ASSESSMENT: A 62-year-old gentleman postop day 1 from right knee replacement, doing pretty well. Pain is controlled. He is neurologically intact. PLAN: 1. DVT prophylaxis including thigh-high TEDs, SCDs, and aspirin twice a day. 2. PT/OT. Weight bear as tolerated. Right total knee protocol. 3. Pain control, doing pretty well with current pain regimen. 4. Disposition: He is planning to be discharged to home with some home health once adequately recovered.
[2017-11-15] MEDS: CHECK SCOPOLAMINE PATCH PLACEMENT SCH ×3 (08:00→23:57)
[2017-11-15] MEDS: DOCUSATE SODIUM 100 MG CAP PO SCH ×2 (08:57→21:00)
[2017-11-15] MEDS: FERROUS GLUCONATE 324 MG TAB PO SCH ×3 (08:57→17:38)
[2017-11-15] MEDS: ASPIRIN 81 MG ECTAB PO SCH ×2 (08:58→21:00)
[2017-11-15] MEDS: MULTIVITAMIN TAB PO SCH (08:58)
[2017-11-15] MEDS: PANTOprazole SOD 40 MG TAB PO SCH (08:59)
[2017-11-15] MEDS: TAPENTADOL ER 50 MG TABCR PO SCH ×2 (08:59→21:00)
[2017-11-15 10:43] VITALS: BP 111/66; PULSE 52; O2SAT 97
[2017-11-15] MEDS: OXYCODONE HCL IR 5 MG TAB (IMMEDIATE RELEASE) PO PRN ×2 (11:29→17:38)
[2017-11-15 12:41] VITALS: BP 124/64; PULSE 57; TEMP 36.8; O2SAT 96
[2017-11-15 15:21] VITALS: BP 117/62; PULSE 72; TEMP 36.8; O2SAT 94
[2017-11-15] MEDS: SENNA 8.6 MG TAB PO SCH (21:00)
[2017-11-15 23:00] VITALS: BP 118/73; PULSE 78; TEMP 37; O2SAT 96
[2017-11-16] MEDS: ACETAMINOPHEN 500 MG TAB PO SCH ×2 (05:30→13:21)
[2017-11-16] MEDS: KETOROLAC TROMETHAMINE 30 MG/ML VIAL IV. SCH (05:30)
[2017-11-16] MEDS: LEVOTHYROXINE 175 MCG TAB PO SCH (05:30)
[2017-11-16 06:41] VITALS: BP 115/67; PULSE 60; TEMP 36.6; O2SAT 95
[2017-11-16] MEDS: CHECK SCOPOLAMINE PATCH PLACEMENT SCH (07:42)
[2017-11-16] MEDS: ASPIRIN 81 MG ECTAB PO SCH (07:43)
[2017-11-16] MEDS: MULTIVITAMIN TAB PO SCH (07:43)
[2017-11-16] MEDS: DOCUSATE SODIUM 100 MG CAP PO SCH (07:43)
[2017-11-16] MEDS: FERROUS GLUCONATE 324 MG TAB PO SCH ×2 (07:43→12:30)
[2017-11-16] MEDS: TAPENTADOL ER 50 MG TABCR PO SCH (07:44)
[2017-11-16] MEDS ORDERED: ASPI-320 PO (07:44)
[2017-11-16] MEDS: PANTOprazole SOD 40 MG TAB PO SCH (07:44)
[2017-11-16] MEDS ORDERED: ACET-24 PO (07:44)
[2017-11-16] MEDS ORDERED: RXC5 PO (07:44)
--- NOTE | 2017-11-16 07:46 | Discharge Instructions ---
Discharge Instructions Date of Service November 16, 2017. Admission Reason for Admission: Right Knee Degenerative Joint Disease, Knee Pain Discharge Discharge Diagnosis / Problem: Right Knee REplacement Discharge Goals Goal(s): Decrease discomfort, Improve function, Increase independence, Improve disease control, Therapeutic intervention Activity Recommendations Activity Limitations: per Instructions/Follow-up section Weightbearing Status: Right weightbearing . Instructions / Follow-Up Instructions / Follow-Up ACTIVITY RECOMMENDATIONS: Physical Therapy: * You will go to physical therapy three times each week for four to six weeks after your surgery in order to regain your knee range of motion and to retrain your knee to work properly. * It is just as important to make sure you are getting your knee perfectly straight as it is to regain your knee bend. * Taking a pain pill an hour before therapy can help you have a more productive and comfortable therapy session. Home Exercise: * You were shown a series of exercises (heel props, heel slides, etc.) in the hospital. Do these exercises three to four times each day including the exercises you were shown in physical therapy. Walking: * Get up and walk several times each day. For the first four weeks, try not to stand or walk for more than one hour at a time. If you do stand or walk for more than one hour, you will not hurt anything, but your knee and leg will likely swell. * As you feel comfortable, you may change from the walker or crutches to a cane and then to independent walking. MEDICATIONS: New Medicine: * You will likely be taking one or more of these medications: 1. Oxycodone - A quick and shorter-acting pain medication. Take one to two tablets every four to six hours to lessen your pain. 2. Aspirin - Thins your blood to lessen the chance of forming a blood clot. * The most common side effects of pain medicine and iron are nausea and constipation. If nausea or constipation is too much of a problem or if you have any questions about your new medicines or doses, call [facility] at [phone]. We will try to help you manage these issues. VERY IMPORTANT TO READ AND REVIEW" Pain: * The immediate post-operative period after knee replacement surgery is often quite painful. * You are given a prescription for pain medicine. You should take it, as directed, when you need it, especially before physical therapy and before going to bed. Pain that interferes with sleep is very common and can last several months. * You will likely need pain medicine for the first four to six weeks. It will not stop all of the pain. The pain will lessen and as you feel better, you may change to milder pain medicine such as Tylenol. * The most common side effects of pain medicine are nausea and constipation, so don't take more than you need. SPECIAL CARE INSTRUCTIONS: TEDs/Elastic Stockings: * The white elastic stockings help limit swelling and prevent blood clots from forming in your legs. The more you wear them, the more they work. * Wear them for six weeks after knee replacement surgery and four weeks after partial knee replacement. Prevention of Infection: * Take antibiotics one hour before any dental cleaning, dental work, urological procedure, gastrointestinal procedure or any invasive surgery in order to prevent your new joint from getting infected. * You may get the antibiotics from the doctor performing the procedure or you may call our office at before and we will call in a prescription to the pharmacy of your choice. Things to Watch For: * Drainage from the incision site that occurs more than one week after your surgery. * Severely increased knee/leg pain or swelling. * Increased redness at the incision site. * Fever above 102 degrees Fahrenheit. * Unusual chest pain or shortness of breath. * Unusual pain or burning with urination. Call [facility] at with any of the above problems or if you have any questions about your medicines or recovery. FOLLOW UP VISIT: Make an appointment to see your doctor for approximately two weeks after surgery for a progress check and staple removal by calling the office at . Current Hospital Diet Patient's current hospital diet: Regular Diet Discharge Diet Recommended Diet: Regular Diet Procedures Procedures Performed: Right Total Knee Arthroplasty Pending Studies Studies pending at discharge: no Medical Emergencies . Who to Call and When: Medical Emergencies: If at any time you feel your situation is an emergency, please call [phone] immediately. . Non-Emergent Contact Non-Emergency issues call your: Surgeon . "Provider Documentation" section prepared by Thomas Cedillo. .
[2017-11-16 08:26] VITALS: BP 133/80; PULSE 71
--- NOTE | 2017-11-16 08:34 | PROGRESS NOTE ---
DATE: 11/16/2017 SUBJECTIVE: A 62-year-old gentleman postop day 2 from right knee replacement. He is doing pretty well. Pretty painful last night, but doing better this morning. No chest pain or shortness of breath. Not feeling dizzy or lightheaded. OBJECTIVE: VITAL SIGNS: Temperature 36.6. Vital signs stable. GENERAL: Physical examination shows a healthy, pleasant, middle-aged male. He is sitting up in bed, and looks pretty comfortable. EXTREMITIES: Examination of the right leg reveals the leg to be well aligned. Dressing is clean, dry and intact. Calf is soft and supple. He can dorsiflex and plantarflex his foot appropriately. ASSESSMENT: A 62-year-old gentleman postop day 2 from right knee replacement, doing reasonably well. PLAN: 1. DVT prophylaxis including thigh-high TEDs, SCDs, and aspirin twice a day. 2. PT/OT. Weight bear as tolerated. Right total knee protocol. 3. Pain control. Doing reasonably well with current pain regimen. 4. Disposition: Plan to discharge to home with home health later today.
[2017-11-16 10:32] VITALS: BP 133/80; PULSE 71; TEMP 36.6; O2SAT 95
[2017-11-16] MEDS: OXYCODONE HCL IR 5 MG TAB (IMMEDIATE RELEASE) PO PRN (11:55)
--- NOTE | 2017-11-18 15:44 | DISCHARGE SUMMARY ---
ADMITTING PHYSICIAN AND SURGEON: Dr. Cedillo. ADMITTING DIAGNOSIS: Right knee degenerative joint disease. SURGERY PERFORMED: Right total knee arthroplasty. SECONDARY DIAGNOSES: Irregular heart palpitations, sleep apnea, hypothyroidism, arthritis, elevated PSA. CONSULTS: None obtained. HISTORY AND PHYSICAL EXAMINATION: Well documented in the patient's chart. HOSPITAL COURSE: The patient was admitted on 11/14/2017 underwent total knee arthroplasty, tolerated the procedure well. There were no complications. He was transferred to the PACU postoperatively and later to the orthopedic for further care. He was given Ancef for antibiotic prophylaxis, REJI stockings, SCDs and aspirin for DVT prophylaxis. Hemoglobin, hematocrit and vital signs were monitored during his hospital stay and remained stable, did not require any blood transfusions. There were no complications. By postoperative day 2 was tolerating a regular diet, pain was controlled with oral pain medicine, he was participating in physical therapy. On postop day 2, he was discharged home, set up with home health services. He was given printed discharge instructions including new prescriptions for extra strength Tylenol, aspirin and oxycodone. Continue his home medications with the exception of his home dose of aspirin which was changed. Continue physical therapy, weightbearing as tolerated, REJI stockings. Follow up in 10-12 days or sooner if there are any problems or concerns.
== END 2017-11-16 14:17 | disposition home health service (06) | DRG 470 ==
LOC: C.ACU 04:49 → C.3E 06:45 → ENRESERV 09:17
PROVIDERS: ADMIT Orthopaedic Surgery Sports Medicine; ATTEND Orthopaedic Surgery Sports Medicine
PROC: 0SRC0J9 Replacement of Right Knee Joint with Synthetic Substitute, Cemented, Open Approach (ICD-10-PCS; principal; 2017-11-14 07:00)
DX: M17.11 Unilateral primary osteoarthritis, right knee (principal); G47.30 Sleep apnea, unspecified; E89.0 Postprocedural hypothyroidism; Z96.652 Presence of left artificial knee joint; Z85.850 Personal history of malignant neoplasm of thyroid; Z87.442 Personal history of urinary calculi; Z79.82 Long term (current) use of aspirin; Z82.49 Family history of ischemic heart disease and other diseases of the circulatory system; Z83.3 Family history of diabetes mellitus; Z83.49 Family history of other endocrine, nutritional and metabolic diseases; Z80.6 Family history of leukemia

== ENCOUNTER 2018-09-18 22:56 | Inpatient (IN) ==
[2018-09-18] MEDS ORDERED: HYDROmorphone INJ 0.5 MG/0.5 ML SYR IV STA (23:08)
[2018-09-18] MEDS ORDERED: ONDANSETRON INJ 2 MG/ML 2 ML VIAL IV STA (23:16)
--- NOTE | 2018-09-18 23:46 | Emergency Department Note ---
Entered by Kinsey Talamantes acting as a scribe for Trey Antonio M.D. History of Present Illness General Chief complaint: Flank Pain Stated complaint: PAIN IN KIDNEYS Source: patient Limitations: no limitations History of Present Illness Provider complaint: flank pain Onset (ago): hour(s) 5 Location: abdomen Radiation: other (groin) Maximum Pain Intensity: 10 Associated symptoms: + diaphoresis and + nausea/vomiting Treatments prior to arrival: other (Percocet ) The patient is a 63 year old male who presents to the Emergency Room with complaints of flank pain that began 5 hours prior to arrival. The patient states that the pain radiated to his groin. The patient states that he has nausea, vomiting, diaphoresis, ad kidney pain. The patient states that he can't keep food down. The patient states that he had a Lithotripsy earlier in the day prior to arrival and states that he was discharged home with no pain. The patient states that he took a Percocet prior to arrival but states it didn't relieve his pain. Home Medications Home Medications Medication Instructions Recorded Confirmed Type aspirin [Aspirin Low Dose] 162 mg PO QAM 04/01/18 09/18/18 History levothyroxine 175 mcg PO QAM 04/01/18 09/18/18 History oxycodone 5 mg PO Q6H PRN 09/09/18 09/18/18 History oxycodone-acetaminophen 1 tab PO Q6H PRN #20 tab 09/18/18 09/18/18 Rx Allergies Allergy/AdvReac Type Severity Reaction Status Date / Time Sulfa (Sulfonamide Allergy Intermediate Rash Verified 09/18/18 23:36 Antibiotics) red dye Allergy Unknown RED DYE 40 Verified 09/18/18 23:36 -BLURRED VISION tramadol Allergy Unknown ITCHING Verified 09/18/18 23:36 Past Med/Surg History Social History Preferred Language: Romanian Communication Ability: Effective Director Of Nuclear Medicine Required: No Beliefs That Will Affect Care: None marital status: Current Living Situation: Spouse Other Information That Helps Us Care for You: No Feels Safe at Home: Yes Safety Concerns: Feels Safe At This Time Smoking Status: Never smoker Hx Alcohol Use: No Hx Substance Use: No Review of Systems See HPI for pertinent positives & negatives. and A total of 10 systems reviewed and were otherwise negative Physical Exam Vital Signs Vital Signs - 24 hr 09/18/18 23:04 03/09/19 00:43 09/19/18 02:30 Temperature 36.7 C Temperature Source Oral Sepsis Recent Fever Within 48 Hours No Sepsis Action Taken by Nursing No Action Required Pulse Rate 94 H Pulse Rate [Apical] Pulse Rate [Right Brachial] Pulse Rate [Right] 85 64 Pulse Rhythm Pulse Rhythm [Apical] Pulse Rhythm [Right Brachial] Pulse Rhythm [Right] Regular Regular Pulse Strength [Apical] Pulse Strength [Right Brachial] Pulse Strength [Right] Normal Normal Respiratory Rate 18 16 16 Respiratory Effort / Characteristics Non-Labored Non-Labored Spontaneous Non-Labored Respiratory Depth Normal Normal Normal Respiratory Pattern Regular Regular Blood Pressure 144/90 H Blood Pressure [Right Arm] 140/79 148/89 H Blood Pressure Mean 108 Blood Pressure Mean [Right Arm] 99 108 Blood Pressure Position [Right Arm] Sitting Pulse Oximetry 96 95 99 Oxygen Delivery Method Room Air Room Air Room Air 09/19/18 03:07 09/19/18 03:08 09/19/18 04:01 Temperature Temperature Source Sepsis Recent Fever Within 48 Hours Sepsis Action Taken by Nursing Pulse Rate 65 58 L Pulse Rate [Apical] Pulse Rate [Right Brachial] Pulse Rate [Right] 65 Pulse Rhythm Regular Pulse Rhythm [Apical] Pulse Rhythm [Right Brachial] Pulse Rhythm [Right] Regular Pulse Strength [Apical] Pulse Strength [Right Brachial] Pulse Strength [Right] Normal Respiratory Rate 16 16 16 Respiratory Effort / Characteristics Non-Labored Respiratory Depth Normal Respiratory Pattern Regular Blood Pressure 140/88 Blood Pressure [Right Arm] 149/90 H Blood Pressure Mean Blood Pressure Mean [Right Arm] 109 Blood Pressure Position [Right Arm] Pulse Oximetry 99 98 98 Oxygen Delivery Method Room Air Room Air Room Air 09/19/18 04:15 09/19/18 07:50 09/19/18 12:06 Temperature 36.9 C 36.6 C 36.5 C Temperature Source Oral Oral Oral Sepsis Recent Fever Within 48 Hours Sepsis Action Taken by Nursing Pulse Rate Pulse Rate [Apical] 68 72 Pulse Rate [Right Brachial] 80 Pulse Rate [Right] Pulse Rhythm Pulse Rhythm [Apical] Regular Regular Pulse Rhythm [Right Brachial] Regular Pulse Rhythm [Right] Pulse Strength [Apical] Normal Normal Pulse Strength [Right Brachial] Normal Pulse Strength [Right] Respiratory Rate 16 18 18 Respiratory Effort / Characteristics Non-Labored Spontaneous Non-Labored Spontaneous Non-Labored Spontaneous Respiratory Depth Normal Normal Normal Respiratory Pattern Regular Regular Regular Blood Pressure Blood Pressure [Right Arm] 133/82 118/72 108/76 Blood Pressure Mean Blood Pressure Mean [Right Arm] 99 87 86 Blood Pressure Position [Right Arm] Lying Lying Lying Pulse Oximetry 93 92 93 Oxygen Delivery Method Room Air Room Air Room Air GENERAL: Awake, alert, uncomfortable-appearing. HENT: Normocephalic, atraumatic. EYES: Normal conjunctiva. Sclera non-icteric. NECK: Supple. No nuchal rigidity. RESPIRATORY: Clear to auscultation. No wheezes. Normal respiratory effort. CARDIAC: Normal rate. Normal rhythm. Extremities warm and well perfused. GI: Soft, non-distended. Left flank pain. No rebound or guarding. No masses. RECTAL: Deferred. MUSCULOSKELETAL: Atraumatic. Chest examination reveals no tenderness. There is L CVA tenderness to palpation. LOWER EXTREMITIES: Calves are equal size bilaterally and non-tender. No edema NEURO: Normal sensorium. No sensory or motor deficits noted. No facial droop. SKIN: Warm and dry. No jaundice noted. Course 2310: Past medical records reviewed. The patient was evaluated in room C6, and a complete history and physical examination were performed. 0005: I checked on the patient and he states that he is feeling comfortable. Consultations Consultation #1: Dr. Elise - Recommends hospitalist to admit and monitor H/H. Time: 01:58 Consultation #2: Dr. Gerardo Patterson - declined admission. Time: 02:03 Administered Medications Hydromorphone HCl (Dilaudid) 0.5 mg IV Q3H PRN PRN Reason: Pain Stop: 10/03/18 03:51 Last Admin: 09/19/18 05:11 Dose: 0.5 mg Documented by: [id number] Prochlorperazine 10 mg/ (Syringe) 10 mls @ 5 mls/min IV Q6H PRN PRN Reason: Nausea And Vomiting Stop: 10/19/18 04:29 Last Admin: 09/19/18 05:12 Dose: 5 mls/min Documented by: [id number] Levothyroxine Sodium (Synthroid) 175 mcg PO DAILYBB OPHELIA Stop: 10/19/18 06:59 Last Admin: 09/19/18 07:18 Dose: 175 mcg Documented by: [id number] Oxycodone HCl (Roxicodone Immediate Rel) 10 mg PO Q6 PRN PRN Reason: Pain Stop: 10/03/18 06:42 Last Admin: 09/19/18 10:39 Dose: 10 mg Documented by: [id number] Discontinued Medications Hydromorphone HCl (Dilaudid) 0.5 mg IV NOW STA Stop: 09/18/18 23:09 Last Admin: 09/18/18 23:25 Dose: 0.5 mg Documented by: [id number] Hydromorphone HCl (Dilaudid) 1 mg IV NOW STA Stop: 09/19/18 01:57 Last Admin: 09/19/18 02:01 Dose: 1 mg Documented by: [id number] Ondansetron HCl (Zofran) 4 mg IV NOW STA Stop: 09/18/18 23:17 Last Admin: 09/18/18 23:26 Dose: 4 mg Documented by: [id number] Ondansetron HCl (Zofran) 4 mg IV NOW STA Stop: 09/19/18 01:57 Last Admin: 09/19/18 02:01 Dose: 4 mg Documented by: [id number] Medical Decision Making Differential Diagnosis Differential: Renal Colic, Pyelonephritis, Hydronephrosis, Appendicitis, Diverticulitis, Retroperitonea Bleed/Infection, Aortic Pathology, MSK, Neurologic Pathology, amongst other pathologies entertained. Medical Records Attestation: I reviewed the patient's medical records. Home Medications Current Medication List: was personally reviewed by me Laboratory Data Attestation: I reviewed the patient's lab results. Result diagrams: 09/18/18 23:50 09/18/18 23:50 Lab Results 09/18/18 09/18/18 09/18/18 Range/Units 23:30 23:50 23:50 WBC 15.44 H (4.8-10.8) K/uL RBC 4.83 (4.7-6.1) M/uL Hgb 14.5 (14.0-18.0) g/dL POC Hgb (14.0-18.0) g/dl Hct 42.6 (42-52) % POC Hct (42-52) % MCV 88.2 (80-100) fL MCH 30.0 (25-34) pg MCHC 34.0 (32-36) g/dL RDW Std Deviation 43.4 (36.4-46.3) fL RDW Coeff of Makayla 13.5 (11.5-14.5) % Plt Count 195 (130-400) K/uL MPV 11.2 H (7.4-10.4) fL Immature Gran % (Auto) 0.3 % Neut % (Auto) 88.9 % Lymph % (Auto) 4.7 % [place] % (Auto) 6.0 % Eos % (Auto) 0.0 % Baso % (Auto) 0.1 % Immature Gran # (Auto) 0.04 H (0.00-0.02) K/uL Neut # (Auto) 13.75 H (1.4-6.5) K/uL Lymph # (Auto) 0.72 L (1.2-3.4) K/uL [place] # (Auto) 0.92 H (0.11-0.59) K/uL Eos # (Auto) 0.00 (0-0.5) K/uL Baso # (Auto) 0.01 (0-0.2) K/uL POC Sodium (135-144) mEq/L Sodium 139 (136-145) mmol/L POC Potassium (3.3-5.0) mEq/L Potassium 3.7 (3.5-5.1) mmol/L POC Chloride (101-112) mEq/L Chloride 106 (98-107) mmol/L Carbon Dioxide 24 (21-32) mmol/L POC Total CO2 (24-31) mEq/l Anion Gap 9.0 (3-11) POC Anion Gap (16-25) mmol/L POC BUN (7-18) mg/dl BUN 12 (7-18) mg/dl Creatinine 1.09 (0.6-1.4) mg/dl POC Creatinine (0.6-1.3) mg/dl Est Cr Clr Drug Dosing 90.6 ml/min Est GFR ( Amer) 82.7 Est GFR (Non-Af Amer) 71.4 BUN/Creatinine Ratio 10.6 (10-20) Glucose 136 H (70-99) mg/dl POC Glucose (other) (70-99) mg/dl Calcium 8.6 (8.5-10.1) mg/dl POC Ioniz Calcium Clara (1.12-1.32) mmol/l Total Bilirubin 0.5 (0.2-1) mg/dl AST 16 (15-37) U/L ALT 40 (12-78) U/L Alkaline Phosphatase 72 (45-117) U/L Total Protein 7.4 (6.4-8.2) gm/dl Albumin 3.6 (3.4-5.0) gm/dl Globulin 3.8 (2.5-4.0) gm/dl Albumin/Globulin Ratio 0.9 (0.9-2) Lipase 69 L (73-393) U/L Urine Color Yellow Urine Appearance Clear (Clear) Urine pH 5.5 (4.5-7.5) Ur Specific [place] 1.022 (1.000-1.030) Urine Protein Negative (Negative) Urine Glucose (UA) Negative (Negative) Urine Ketones Negative (Negative) Urine Blood 3+ H (Negative) Urine Nitrite Negative (Negative) Urine Bilirubin Negative (Negative) Urine Urobilinogen Negative (Negative) Ur Leukocyte Esterase Negative (Negative) Urine WBC (Auto) 1-5 (0-5) /hpf Urine RBC (Auto) >30 H (0-4) /hpf U Hyaline Cast (Auto) 0 (0-5) /lpf U Epithel Cells (Auto) 0-5 (0-5) /lpf Urine Bacteria (Auto) Negative (Negative) 09/19/18 Range/Units 00:02 WBC (4.8-10.8) K/uL RBC (4.7-6.1) M/uL Hgb (14.0-18.0) g/dL POC Hgb 14.3 (14.0-18.0) g/dl Hct (42-52) % POC Hct 42 (42-52) % MCV (80-100) fL MCH (25-34) pg MCHC (32-36) g/dL RDW Std Deviation (36.4-46.3) fL RDW Coeff of Makayla (11.5-14.5) % Plt Count (130-400) K/uL MPV (7.4-10.4) fL Immature Gran % (Auto) % Neut % (Auto) % Lymph % (Auto) % [place] % (Auto) % Eos % (Auto) % Baso % (Auto) % Immature Gran # (Auto) (0.00-0.02) K/uL Neut # (Auto) (1.4-6.5) K/uL Lymph # (Auto) (1.2-3.4) K/uL [place] # (Auto) (0.11-0.59) K/uL Eos # (Auto) (0-0.5) K/uL Baso # (Auto) (0-0.2) K/uL POC Sodium 140 (135-144) mEq/L Sodium (136-145) mmol/L POC Potassium 3.6 (3.3-5.0) mEq/L Potassium (3.5-5.1) mmol/L POC Chloride 102 (101-112) mEq/L Chloride (98-107) mmol/L Carbon Dioxide (21-32) mmol/L POC Total CO2 23 L (24-31) mEq/l Anion Gap (3-11) POC Anion Gap 19.0 (16-25) mmol/L POC BUN 11 (7-18) mg/dl BUN (7-18) mg/dl Creatinine (0.6-1.4) mg/dl POC Creatinine 1.0 (0.6-1.3) mg/dl Est Cr Clr Drug Dosing ml/min Est GFR ( Amer) Est GFR (Non-Af Amer) BUN/Creatinine Ratio (10-20) Glucose (70-99) mg/dl POC Glucose (other) 143 H (70-99) mg/dl Calcium (8.5-10.1) mg/dl POC Ioniz Calcium [place] 1.16 (1.12-1.32) mmol/l Total Bilirubin (0.2-1) mg/dl AST (15-37) U/L ALT (12-78) U/L Alkaline Phosphatase (45-117) U/L Total Protein (6.4-8.2) gm/dl Albumin (3.4-5.0) gm/dl Globulin (2.5-4.0) gm/dl Albumin/Globulin Ratio (0.9-2) Lipase (73-393) U/L Urine Color Urine Appearance (Clear) Urine pH (4.5-7.5) Ur Specific [place] (1.000-1.030) Urine Protein (Negative) Urine Glucose (UA) (Negative) Urine Ketones (Negative) Urine Blood (Negative) Urine Nitrite (Negative) Urine Bilirubin (Negative) Urine Urobilinogen (Negative) Ur Leukocyte Esterase (Negative) Urine WBC (Auto) (0-5) /hpf Urine RBC (Auto) (0-4) /hpf U Hyaline Cast (Auto) (0-5) /lpf U Epithel Cells (Auto) (0-5) /lpf Urine Bacteria (Auto) (Negative) Imaging Data Radiologist's Impression: Large left perinephric hemorrhage around the entire kidney measuring around 14 x 8.5 x 2.5 cm and cannot exclude page kidney Left perinephric and retroperitoneal stranding and edema may be reactive, hemorrhage with forniceal rupture not excluded Small stones dependently the within the left renal pelvis No left hydronephrosis A couple of tiny stones at the distal ureter and left UVJ Tiny stones dependently within the bladder Small nonobstructing right intrarenal stones Hepatic steatosis Hepatic and renal cysts Basilar atelectasis No bowel dilation or free air Normal caliber appendix without secondary signs Dr. Twin Irvin MD. [facility] Prescription Drug Monitoring [place] Drug Monitoring Program reviewed and no issues identified Blood Pressure Blood Pressure Findings: Elevated blood pressure Blood Pressure Disposition: elevated BP felt to be situational MDM Narrative 63-year-old gentleman history of kidney stones presenting today with a complaint of flank/kidney pain. Lithotripsy today for this. Has had multiple in the past without issue but did do a severe left flank pain with occasional radiation into his groin. Denies any new trauma or fevers. Nausea and vomiting and again severe pain refractory to Percocet. Given additional pain and antiemetic medicine. Basic laboratory studies were completed. Doubt this is cardiac. Lower suspicion this is acute PE, pancreatitis, or hepatitis. CT the abdomen pelvis was completed to evaluate for any significant injury to the kidney or bleeding. Urinalysis completed. Seems unlikely to be acutely infectious. No evidence of acute urinary retention. Do not believe it is testicular in nature. Some Zofran and Dilaudid given to the patient who was then comfortable here. Laboratory studies are unremarkable other than a leukocytosis of 15. I believe is reactive. No evidence of significant anemia, Hgb 14. CT scan showed evidence of a left-sided perinephric hematoma. Urology was consulted/contacted and discussed this case with . Recommended admission to the hospitalist and repeat hemoglobin in the morning. Patient is not currently on anticoagulation or antiplatelet agents. Given additional pain and antinausea medicine here. Patient updated. Hospitalist contacted who had concerns regarding medical admission. Dr. Elise re-contacted who discussed the case with Dr. Patterson. Admitted. Impression & Plan Perinephric hematoma Discharge Plan Visit Data *Final* Discharge Date/Time: 09/19/18 04:01 Chief Complaint: Flank Pain Stated Complaint: PAIN IN KIDNEYS ED Provider: Trey Antonio Discharge Problem: Perinephric hematoma Patient Disposition: Admitted As Inpatient Condition: Fair Discharge Instructions Interventions: ED Discharge Assessment Last Done: 09/19/18 04:01 The scribe's documentation has been prepared under my direction and personally reviewed by me in its entirety. I confirm that the note above accurately reflects all work, treatment, procedures, and medical decision making performed by me.
[2018-09-19 00:04] LABS: Appearance Urine Clear (Clear); Bacteria Urine Automated Negative (Negative); Bilirubin Urine Negative (Negative); Blood Urine 3+ (Negative); Cast Urine Automated 0 /lpf (0-5); Color Urine Yellow; Epithelial Cell Urine Auto 0-5 /lpf (0-5); Glucose Urine UA Negative (Negative); Ketones Urine Negative (Negative); Leukocyte Esterase Urine Negative (Negative); Nitrite Urine Negative (Negative); Protein Urine Negative (Negative); RBC Urine Automated >30 /hpf (0-4); Specific Gravity Urine 1.022 (1.000-1.030); Urobilinogen Urine Negative (Negative); pH Urine 5.5 (4.5-7.5)
[2018-09-19 00:07] LABS: Basophils # (auto) 0.01 K/uL (0-0.2); Basophils % (auto) 0.1 %; Hematocrit (blood only) 42.6 % (42-52); Hemoglobin 14.5 g/dL (14.0-18.0); Immature Granulocytes # (auto) 0.04 K/uL (0.00-0.02); Immature Granulocytes % (auto) 0.3 %; Lymphocytes # (auto) 0.72 K/uL (1.2-3.4); Lymphocytes % (auto) 4.7 %; Mean Corpuscular Volume 88.2 fL (80-100); Mean Platelet Volume 11.2 fL (7.4-10.4); Monocytes # (auto) 0.92 K/uL (0.11-0.59); Neutrophils # (auto) 13.75 K/uL (1.4-6.5); Neutrophils % (auto) 88.9 %; Platelet Count 195 K/uL (130-400); RDW Coefficient of Variation 13.5 % (11.5-14.5); RDW Standard Deviation 43.4 fL (36.4-46.3); Red Blood Count 4.83 M/uL (4.7-6.1); White Blood Count 15.44 K/uL (4.8-10.8)
[2018-09-19 00:14] LABS: iSTAT Hemoglobin 14.3 g/dl (14.0-18.0); iSTAT Ionized Calcium 1.16 mmol/l (1.12-1.32); iSTAT Potassium 3.6 mEq/L (3.3-5.0)
[2018-09-19 00:26] LABS: Albumin Level 3.6 gm/dl (3.4-5.0); BUN Creatinine Ratio 10.6 (10-20); Calcium 8.6 mg/dl (8.5-10.1); Creatinine Clr Calc Pharmacy 90.6 ml/min; Est GFR (African American) 82.7; Est GFR (Non-African American) 71.4; Potassium 3.7 mmol/L (3.5-5.1)
[2018-09-19 00:28] LABS: Albumin Globulin Ratio 0.9 (0.9-2); Bilirubin,Total 0.5 mg/dl (0.2-1); Globulin 3.8 gm/dl (2.5-4.0); Total Protein 7.4 gm/dl (6.4-8.2)
[2018-09-19] MEDS ORDERED: ONDANSETRON INJ 2 MG/ML 2 ML VIAL IV STA (01:56)
[2018-09-19] MEDS ORDERED: HYDROmorphone INJ 1 MG/ML SYRINGE IV STA (01:56)
--- NOTE | 2018-09-19 03:27 | History & Physical Report ---
Date of Service September 19, 2018 Assessment & Plan (1) Perinephric hematoma: Large left perinephric hematoma/status post lithotripsy for kidney stones-- Admit to medical surgical floor for pain control. Hold aspirin. Tylenol 1 g IV every 8 hours as needed mild pain or temperature. Increase oxycodone from 5-10 mg p.o. every 4 hours as needed for moderate pain. Dilaudid 0.5 mg IV every 3 hours as needed severe pain. Serial CBC with differential and chemistry profile. Consult urology Dr. Elise Present on Admission?: Yes (2) History of kidney stones: As above. Present on Admission?: Yes (3) Hypothyroidism (acquired): Continue levothyroxine 125 mcg p.o. every morning. Present on Admission?: Yes History of Present Illness Chief Complaint: The patient presents to the emergency department with worsening flank pain that began 5 hours prior to arrival. Primary Care Provider: Finesse Kilgore MD The patient is a 63-year-old male who presents to the emergency department with worsening left-sided flank pain, nausea, vomiting, and sweats that began shortly after lithotripsy earlier in the day. He did try to take a Percocet but reports that the medication did not control his pain. Dr. Elise was initially contacted by the emergency department, and then I spoke with him, and he asked that the patient be admitted to the medical service for pain control and that he would see the patient in morning. Allergies Allergy/AdvReac Type Severity Reaction Status Date / Time Sulfa (Sulfonamide Allergy Intermediate Rash Verified 09/18/18 23:36 Antibiotics) red dye Allergy Unknown RED DYE 40 Verified 09/18/18 23:36 -BLURRED VISION tramadol Allergy Unknown ITCHING Verified 09/18/18 23:36 Home Medications Home Medications Medication Instructions Recorded Confirmed Type aspirin [Aspirin Low Dose] 162 mg PO QAM 04/01/18 09/18/18 History levothyroxine 175 mcg PO QAM 04/01/18 09/18/18 History oxycodone 5 mg PO Q6H PRN 09/09/18 09/18/18 History oxycodone-acetaminophen 1 tab PO Q6H PRN #20 tab 09/18/18 09/18/18 Rx Past Med/Surg History Social History Preferred Language: Mauritanian Communication Ability: Effective Beliefs That Will Affect Care: None marital status: Current Living Situation: Spouse Feels Safe at Home: Yes Smoking Status: Never smoker Hx Alcohol Use: No Hx Substance Use: No Review of Systems The patient denies chest pain, palpitations, shortness of breath, dyspnea on exertion, cough, lower extremity swelling, sore throat, fatigue, diarrhea , constipation, blood in stool, lightheadedness, dizziness, headache, memory loss, loss of consciousness, rash, imbalance, focal or generalized weakness, numbness or tingling in arms or legs, generalized arthralgias or myalgias, neck pain, or night sweats. The review of systems is otherwise negative other than for that already noted above, and at least 10 systems have been reviewed. Physical Exam Vital Signs (Past 24 Hours): Last Vital Signs Temp 36.7 C 09/18/18 23:04 Pulse 65 09/19/18 03:08 Resp 16 09/19/18 03:08 BP 149/90 H 09/19/18 03:07 Pulse Ox 98 09/19/18 03:08 Physical Exam: The patient is awake, alert and oriented 3, well developed and well nourished, normocephalic and atraumatic, lying in bed and in no acute distress. HEENT--PERRL, EOMI, mucous membranes and oropharynx dry. Neck--supple. No JVD. No bruits. Thyroid normal, trachea midline, no adenopathy. Heart--normal S1 and S2. No murmurs, rubs or gallops. Lungs--clear bilaterally, no respiratory distress, no accessory muscle use. Abdomen--normal bowel sounds and soft. Nontender. Nondistended. Obese. Extremities--no cyanosis or clubbing. No edema. There are good distal pulses b/l. Dermatologic--normal skin turgor, normal color, no abnormal lymph nodes, no rash. Neurologic--cranial nerves II through XII grossly intact. Rheumatologic--normal range of motion. Psychiatric--normal affect. Results & Data Laboratory Results Laboratory Results WBC 15.44 K/uL (4.8-10.8) H 09/18/18 23:50 RBC 4.83 M/uL (4.7-6.1) 09/18/18 23:50 Hgb 14.5 g/dL (14.0-18.0) 09/18/18 23:50 POC Hgb 14.3 g/dl (14.0-18.0) 09/19/18 00:02 Hct 42.6 % (42-52) 09/18/18 23:50 POC Hct 42 % (42-52) 09/19/18 00:02 MCV 88.2 fL (80-100) 09/18/18 23:50 MCH 30.0 pg (25-34) 09/18/18 23:50 MCHC 34.0 g/dL (32-36) 09/18/18 23:50 RDW Std Deviation 43.4 fL (36.4-46.3) 09/18/18 23:50 RDW Coeff of Makayla 13.5 % (11.5-14.5) 09/18/18 23:50 Plt Count 195 K/uL (130-400) 09/18/18 23:50 MPV 11.2 fL (7.4-10.4) H 09/18/18 23:50 Immature Gran % (Auto) 0.3 % 09/18/18 23:50 Neut % (Auto) 88.9 % 09/18/18 23:50 Lymph % (Auto) 4.7 % 09/18/18 23:50 [place] % (Auto) 6.0 % 09/18/18 23:50 Eos % (Auto) 0.0 % 09/18/18 23:50 Baso % (Auto) 0.1 % 09/18/18 23:50 Immature Gran # (Auto) 0.04 K/uL (0.00-0.02) H 09/18/18 23:50 Neut # (Auto) 13.75 K/uL (1.4-6.5) H 09/18/18 23:50 Lymph # (Auto) 0.72 K/uL (1.2-3.4) L 09/18/18 23:50 [place] # (Auto) 0.92 K/uL (0.11-0.59) H 09/18/18 23:50 Eos # (Auto) 0.00 K/uL (0-0.5) 09/18/18 23:50 Baso # (Auto) 0.01 K/uL (0-0.2) 09/18/18 23:50 POC Sodium 140 mEq/L (135-144) 09/19/18 00:02 Sodium 139 mmol/L (136-145) 09/18/18 23:50 POC Potassium 3.6 mEq/L (3.3-5.0) 09/19/18 00:02 Potassium 3.7 mmol/L (3.5-5.1) 09/18/18 23:50 POC Chloride 102 mEq/L (101-112) 09/19/18 00:02 Chloride 106 mmol/L (98-107) 09/18/18 23:50 Carbon Dioxide 24 mmol/L (21-32) 09/18/18 23:50 POC Total CO2 23 mEq/l (24-31) L 09/19/18 00:02 Anion Gap 9.0 (3-11) 09/18/18 23:50 POC Anion Gap 19.0 mmol/L (16-25) 09/19/18 00:02 POC BUN 11 mg/dl (7-18) 09/19/18 00:02 BUN 12 mg/dl (7-18) 09/18/18 23:50 Creatinine 1.09 mg/dl (0.6-1.4) 09/18/18 23:50 POC Creatinine 1.0 mg/dl (0.6-1.3) 09/19/18 00:02 Est Cr Clr Drug Dosing 90.6 ml/min 09/18/18 23:50 Est GFR ( Amer) 82.7 09/18/18 23:50 Est GFR (Non-Af Amer) 71.4 09/18/18 23:50 BUN/Creatinine Ratio 10.6 (10-20) 09/18/18 23:50 Glucose 136 mg/dl (70-99) H 09/18/18 23:50 POC Glucose (other) 143 mg/dl (70-99) H 09/19/18 00:02 Calcium 8.6 mg/dl (8.5-10.1) 09/18/18 23:50 POC Ioniz Calcium [place] 1.16 mmol/l (1.12-1.32) 09/19/18 00:02 Total Bilirubin 0.5 mg/dl (0.2-1) 09/18/18 23:50 AST 16 U/L (15-37) 09/18/18 23:50 ALT 40 U/L (12-78) 09/18/18 23:50 Alkaline Phosphatase 72 U/L (45-117) 09/18/18 23:50 Total Protein 7.4 gm/dl (6.4-8.2) 09/18/18 23:50 Albumin 3.6 gm/dl (3.4-5.0) 09/18/18 23:50 Globulin 3.8 gm/dl (2.5-4.0) 09/18/18 23:50 Albumin/Globulin Ratio 0.9 (0.9-2) 09/18/18 23:50 Lipase 69 U/L (73-393) L 09/18/18 23:50 Urine Color Yellow 09/18/18 23:30 Urine Appearance Clear (Clear) 09/18/18 23:30 Urine pH 5.5 (4.5-7.5) 09/18/18 23:30 Ur Specific [place] 1.022 (1.000-1.030) 09/18/18 23:30 Urine Protein Negative (Negative) 09/18/18 23:30 Urine Glucose (UA) Negative (Negative) 09/18/18 23:30 Urine Ketones Negative (Negative) 09/18/18 23:30 Urine Blood 3+ (Negative) H 09/18/18 23:30 Urine Nitrite Negative (Negative) 09/18/18 23:30 Urine Bilirubin Negative (Negative) 09/18/18 23:30 Urine Urobilinogen Negative (Negative) 09/18/18 23:30 Ur Leukocyte Esterase Negative (Negative) 09/18/18 23:30 Urine WBC (Auto) 1-5 /hpf (0-5) 09/18/18 23:30 Urine RBC (Auto) >30 /hpf (0-4) H 09/18/18 23:30 U Hyaline Cast (Auto) 0 /lpf (0-5) 09/18/18 23:30 U Epithel Cells (Auto) 0-5 /lpf (0-5) 09/18/18 23:30 Urine Bacteria (Auto) Negative (Negative) 09/18/18 23:30 Code Status & VTE Plan Code Status Full code VTE Prophylaxis Plan VTE Prophylaxis will be ordered: Yes
[2018-09-19] MEDS ORDERED: HYDROmorphone INJ 0.5 MG/0.5 ML SYR IV PRN (03:52)
--- NOTE | 2018-09-19 03:53 | Urology Consultation ---
Date of Consultation September 19, 2018 Assessment & Plan (1) Perinephric hematoma: Patient is admitted for pain control We will check hematocrit in the morning Antiemetics as needed Hematoma will resolve on its own no treatment needed History of Present Illness History of Present Illness Patient is a 63-year-old white male who is post left renal extracorporeal shockwave lithotripsy yesterday. Patient was discharged home postop but developed left flank pain and gross hematuria. Pain was not controlled with oral pain medication so he came to the emergency room. He had a CT scan done which showed a small left perinephric hematoma. He is also passing some stone fragments down the left ureter. He says he is voiding okay although the urine was bloody. Pain is currently controlled. He did have some nausea and vomiting that is also currently controlled Allergies Allergy/AdvReac Type Severity Reaction Status Date / Time Sulfa (Sulfonamide Allergy Intermediate Rash Verified 09/18/18 23:36 Antibiotics) red dye Allergy Unknown RED DYE 40 Verified 09/18/18 23:36 -BLURRED VISION tramadol Allergy Unknown ITCHING Verified 09/18/18 23:36 Home Medications Home Medications Medication Instructions Recorded Confirmed Type aspirin [Aspirin Low Dose] 162 mg PO QAM 04/01/18 09/18/18 History levothyroxine 175 mcg PO QAM 04/01/18 09/18/18 History oxycodone 5 mg PO Q6H PRN 09/09/18 09/18/18 History oxycodone-acetaminophen 1 tab PO Q6H PRN #20 tab 09/18/18 09/18/18 Rx Patient History Social History Preferred Language: Yakut Communication Ability: Effective Beliefs That Will Affect Care: None marital status: Current Living Situation: Spouse Feels Safe at Home: Yes Smoking Status: Never smoker Hx Alcohol Use: No Hx Substance Use: No Review of Systems Nausea Genitourinary (Male): + hematuria and + flank pain Physical Exam Vital Signs (Past 24 Hours): Last Vital Signs Temp 36.7 C 09/18/18 23:04 Pulse 65 09/19/18 03:08 Resp 16 09/19/18 03:08 BP 149/90 H 09/19/18 03:07 Pulse Ox 98 09/19/18 03:08 Physical Exam: Developed well-nourished white male currently in no acute distress Neurologically alert and oriented x3 Abdomen benign He does have left flank pain Extremities without calf pain or edema Results & Data Laboratory Results Laboratory Results - last 24 hr 09/18/18 09/18/18 09/18/18 23:30 23:50 23:50 WBC 15.44 H RBC 4.83 Hgb 14.5 POC Hgb Hct 42.6 POC Hct MCV 88.2 MCH 30.0 MCHC 34.0 RDW Std Deviation 43.4 RDW Coeff of Makayla 13.5 Plt Count 195 MPV 11.2 H Immature Gran % (Auto) 0.3 Neut % (Auto) 88.9 Lymph % (Auto) 4.7 [place] % (Auto) 6.0 Eos % (Auto) 0.0 Baso % (Auto) 0.1 Immature Gran # (Auto) 0.04 H Neut # (Auto) 13.75 H Lymph # (Auto) 0.72 L [place] # (Auto) 0.92 H Eos # (Auto) 0.00 Baso # (Auto) 0.01 POC Sodium Sodium 139 POC Potassium Potassium 3.7 POC Chloride Chloride 106 Carbon Dioxide 24 POC Total CO2 Anion Gap 9.0 POC Anion Gap POC BUN BUN 12 Creatinine 1.09 POC Creatinine Est Cr Clr Drug Dosing 90.6 Est GFR ( Amer) 82.7 Est GFR (Non-Af Amer) 71.4 BUN/Creatinine Ratio 10.6 Glucose 136 H POC Glucose (other) Calcium 8.6 POC Ioniz Calcium [place] Total Bilirubin 0.5 AST 16 ALT 40 Alkaline Phosphatase 72 Total Protein 7.4 Albumin 3.6 Globulin 3.8 Albumin/Globulin Ratio 0.9 Lipase 69 L Urine Color Yellow Urine Appearance Clear Urine pH 5.5 Ur Specific [place] 1.022 Urine Protein Negative Urine Glucose (UA) Negative Urine Ketones Negative Urine Blood 3+ H Urine Nitrite Negative Urine Bilirubin Negative Urine Urobilinogen Negative Ur Leukocyte Esterase Negative Urine WBC (Auto) 1-5 Urine RBC (Auto) >30 H U Hyaline Cast (Auto) 0 U Epithel Cells (Auto) 0-5 Urine Bacteria (Auto) Negative 09/19/18 00:02 WBC RBC Hgb POC Hgb 14.3 Hct POC Hct 42 MCV MCH MCHC RDW Std Deviation RDW Coeff of Makayla Plt Count MPV Immature Gran % (Auto) Neut % (Auto) Lymph % (Auto) [place] % (Auto) Eos % (Auto) Baso % (Auto) Immature Gran # (Auto) Neut # (Auto) Lymph # (Auto) [place] # (Auto) Eos # (Auto) Baso # (Auto) POC Sodium 140 Sodium POC Potassium 3.6 Potassium POC Chloride 102 Chloride Carbon Dioxide POC Total CO2 23 L Anion Gap POC Anion Gap 19.0 POC BUN 11 BUN Creatinine POC Creatinine 1.0 Est Cr Clr Drug Dosing Est GFR ( Amer) Est GFR (Non-Af Amer) BUN/Creatinine Ratio Glucose POC Glucose (other) 143 H Calcium POC Ioniz Calcium [place] 1.16 Total Bilirubin AST ALT Alkaline Phosphatase Total Protein Albumin Globulin Albumin/Globulin Ratio Lipase Urine Color Urine Appearance Urine pH Ur Specific [place] Urine Protein Urine Glucose (UA) Urine Ketones Urine Blood Urine Nitrite Urine Bilirubin Urine Urobilinogen Ur Leukocyte Esterase Urine WBC (Auto) Urine RBC (Auto) U Hyaline Cast (Auto) U Epithel Cells (Auto) Urine Bacteria (Auto) Diagnostic Findings CT reviewed with patient he has a small left perinephric hematoma. He also has 2 distal stone fragments at the left UVJ
[2018-09-19] MEDS ORDERED: ACETAMINOPHEN 1000 MG/100 ML IV IV PRN (04:30)
[2018-09-19] MEDS ORDERED: PROCHLORPERAZINE 10 MG in SYRINGE 8 ML IV PRN (04:30)
[2018-09-19] MEDS: LEVOTHYROXINE SODIUM 175 MCG TABLET PO SCH (07:18)
--- NOTE | 2018-09-19 07:19 | CT Scan Report ---
ABDOMEN AND PELVIS CT WITH IV CONTRAST CT DOSE: 1182.25 mGy.cm HISTORY: L flank pain s/p lithotripsy TECHNIQUE: Multiaxial CT images of the abdomen and pelvis were performed following the use of intrave nous contrast. A dose lowering technique was utilized adhering to the principles of ALARA. COMPARISON STUDY: Abdomen and pelvis CT 04/03/2018. FINDINGS: Bibasilar linear densities consistent with subsegmental atelectasis. No fractures within th e visualized osseous structures. The spleen, adrenal glands, and pancreas are unremarkable. A few pun ctate stones within the gallbladder. Hepatic steatosis. There are 2 small hypodense lesions within th e liver, unchanged. These favor cysts. The prostate gland is enlarged. Small fat-containing left ingu inal hernia. The prostate gland is enlarged. No retroperitoneal lymphadenopathy. Bilateral renal cyst s are again noted. There are are a few small stones within the lower pole of the right kidney. No rig ht-sided hydronephrosis. There are few punctate stones within the bladder. There are a few stones wit hin the left renal pelvis and distal left ureter near the ureterovesical junction. Dominant stone on image 374 measures 4 mm. There is mild left hydroureter without significant hydronephrosis. Left alaina nephric edema. There is also a small amount of edema/hemorrhage tracking along the left anterior psoa s muscle. There is a left renal subcapsular/perinephric hematoma. This results in mild mass effect al shell the left kidney. This measures a maximal thickness of 2.6 cm. There is a punctate nonobstructing stone within the upper pole of the left kidney. No bowel wall thickening or obstruction. IMPRESSION: 1. Moderate to large left renal subcapsular/perinephric hematoma. This results in mild mass effect al shell the left kidney raising the possibility of a page kidney. 2. Bilateral nephrolithiasis. 3. Multiple small stones within the left renal pelvis and distal left ureter/left ureterovesical junc tion. This results in mild left hydroureter without significant hydronephrosis. 4. Small amount of edema/hemorrhage tracking along the left anterior psoas muscle. 5. Cholelithiasis. 6. Additional findings as described above. Electronically signed by: Lai Reyes M.D. 09/19/2018 7:18 AM
[2018-09-19] MEDS: OXYCODONE HCL IR 5 MG TAB (IMMEDIATE RELEASE) PO PRN ×2 (10:39→17:35)
--- NOTE | 2018-09-19 12:44 | Urology Progress Note ---
Date of Service September 19, 2018 Assessment & Plan (1) Perinephric hematoma: Patient is stable from his perinephric hematoma. Would recheck a hematocrit. Continue pain medication as needed. #[address] reviewed there were 2 stones in the distal ureter about 2 mm each of these should pass Continue straining urine Subjective Postop day 1 from left extracorporeal shockwave lithotripsy and development of left perinephric hematoma Patient says his nausea is cleared He still does have some left flank pain especially with movement His urine has cleared up He has no problems voiding He has not had a recent hematocrit He has not passed any stones that he is aware of Physical Exam Vital Signs (Past 24 Hours): Last Vital Signs Temp 36.5 C 09/19/18 12:06 Pulse 72 09/19/18 12:06 Resp 18 09/19/18 12:06 BP 108/76 09/19/18 12:06 Pulse Ox 93 09/19/18 12:06 Physical Exam: Well-developed well-nourished white male no acute distress resting comfortably in bed Neurologically alert and oriented x3 Remedies without calf pain or edema Abdomen benign does have some left flank pain Results & Data Laboratory Results Laboratory Results - last 24 hr 09/18/18 09/18/18 09/18/18 23:30 23:50 23:50 WBC 15.44 H RBC 4.83 Hgb 14.5 POC Hgb Hct 42.6 POC Hct MCV 88.2 MCH 30.0 MCHC 34.0 RDW Std Deviation 43.4 RDW Coeff of Makayla 13.5 Plt Count 195 MPV 11.2 H Immature Gran % (Auto) 0.3 Neut % (Auto) 88.9 Lymph % (Auto) 4.7 [place] % (Auto) 6.0 Eos % (Auto) 0.0 Baso % (Auto) 0.1 Immature Gran # (Auto) 0.04 H Neut # (Auto) 13.75 H Lymph # (Auto) 0.72 L [place] # (Auto) 0.92 H Eos # (Auto) 0.00 Baso # (Auto) 0.01 POC Sodium Sodium 139 POC Potassium Potassium 3.7 POC Chloride Chloride 106 Carbon Dioxide 24 POC Total CO2 Anion Gap 9.0 POC Anion Gap POC BUN BUN 12 Creatinine 1.09 POC Creatinine Est Cr Clr Drug Dosing 90.6 Est GFR ( Amer) 82.7 Est GFR (Non-Af Amer) 71.4 BUN/Creatinine Ratio 10.6 Glucose 136 H POC Glucose (other) Calcium 8.6 POC Ioniz Calcium [place] Total Bilirubin 0.5 AST 16 ALT 40 Alkaline Phosphatase 72 Total Protein 7.4 Albumin 3.6 Globulin 3.8 Albumin/Globulin Ratio 0.9 Lipase 69 L Urine Color Yellow Urine Appearance Clear Urine pH 5.5 Ur Specific [place] 1.022 Urine Protein Negative Urine Glucose (UA) Negative Urine Ketones Negative Urine Blood 3+ H Urine Nitrite Negative Urine Bilirubin Negative Urine Urobilinogen Negative Ur Leukocyte Esterase Negative Urine WBC (Auto) 1-5 Urine RBC (Auto) >30 H U Hyaline Cast (Auto) 0 U Epithel Cells (Auto) 0-5 Urine Bacteria (Auto) Negative 09/19/18 00:02 WBC RBC Hgb POC Hgb 14.3 Hct POC Hct 42 MCV MCH MCHC RDW Std Deviation RDW Coeff of Makayla Plt Count MPV Immature Gran % (Auto) Neut % (Auto) Lymph % (Auto) [place] % (Auto) Eos % (Auto) Baso % (Auto) Immature Gran # (Auto) Neut # (Auto) Lymph # (Auto) [place] # (Auto) Eos # (Auto) Baso # (Auto) POC Sodium 140 Sodium POC Potassium 3.6 Potassium POC Chloride 102 Chloride Carbon Dioxide POC Total CO2 23 L Anion Gap POC Anion Gap 19.0 POC BUN 11 BUN Creatinine POC Creatinine 1.0 Est Cr Clr Drug Dosing Est GFR ( Amer) Est GFR (Non-Af Amer) BUN/Creatinine Ratio Glucose POC Glucose (other) 143 H Calcium POC Ioniz Calcium [place] 1.16 Total Bilirubin AST ALT Alkaline Phosphatase Total Protein Albumin Globulin Albumin/Globulin Ratio Lipase Urine Color Urine Appearance Urine pH Ur Specific [place] Urine Protein Urine Glucose (UA) Urine Ketones Urine Blood Urine Nitrite Urine Bilirubin Urine Urobilinogen Ur Leukocyte Esterase Urine WBC (Auto) Urine RBC (Auto) U Hyaline Cast (Auto) U Epithel Cells (Auto) Urine Bacteria (Auto)
[2018-09-19 13:09] LABS: Hematocrit (blood only) 40.3 % (42-52); Hemoglobin 13.8 g/dL (14.0-18.0)
[2018-09-19] MEDS: ONDANSETRON INJ 2 MG/ML 2 ML VIAL IV PRN (17:38)
--- NOTE | 2018-09-19 18:15 | Hospitalist Progress Note ---
Date of Service September 19, 2018 Assessment & Plan (1) Perinephric hematoma: Large left perinephric hematoma/status post lithotripsy for kidney stones-- Pain control, home once he is able to tolerate with only oral pain medicines. Follow periodic hemoglobin. (2) History of kidney stones: As above. (3) Hypothyroidism (acquired): Continue levothyroxine 125 mcg p.o. every morning. Subjective Follow-up from echo technologist admit. He notes his pain is better controlled. He is still needed a dose of IV Dilaudid about 5 AM, but just had p.o. oxycodone and is wondering how well it will help. Physical Exam Vital Signs (Past 24 Hours): Last Vital Signs Temp 36.9 C 09/19/18 15:28 Pulse 62 09/19/18 15:28 Resp 18 09/19/18 15:28 BP 138/76 09/19/18 15:28 Pulse Ox 94 09/19/18 15:28
[2018-09-20] MEDS: OXYCODONE HCL IR 5 MG TAB (IMMEDIATE RELEASE) PO PRN ×2 (01:37→14:09)
[2018-09-20] MEDS: LEVOTHYROXINE SODIUM 175 MCG TABLET PO SCH (05:52)
[2018-09-20 06:45] VITALS: O2SAT 92
[2018-09-20 07:29] LABS: Hematocrit (blood only) 37.4 % (42-52); Hemoglobin 12.8 g/dL (14.0-18.0)
[2018-09-20 10:02] LABS: BUN Creatinine Ratio 15.1 (10-20); Calcium 8.4 mg/dl (8.5-10.1); Creatinine Clr Calc Pharmacy 109.2 ml/min; Est GFR (African American) 104.2; Est GFR (Non-African American) 89.9; Potassium 3.6 mmol/L (3.5-5.1)
--- NOTE | 2018-09-20 11:45 | Urology Progress Note ---
Date of Service September 20, 2018 Assessment & Plan (1) Perinephric hematoma: Patient slowly improving from his left perinephric hematoma I did explain to him this will reabsorb on its own Once he is able to manage the pain with oral pain meds alone he is stable for discharge He already has a follow-up appointment Subjective Patient's afebrile vital signs are stable Flank pain improving Has not used any pain medicine for the last 12 hours. He is voiding without problem urine is clear per patient Physical Exam Vital Signs (Past 24 Hours): Last Vital Signs Temp 37.3 C 09/20/18 06:44 Pulse 72 09/20/18 06:44 Resp 18 09/20/18 06:44 BP 136/80 09/20/18 06:44 Pulse Ox 92 09/20/18 06:44 Physical Exam: We will develop well-nourished white male no acute distress Neurologically alert and oriented x3 Abdomen soft nontender Does still have some left flank pain Extremities without calf pain or edema Results & Data Laboratory Results Laboratory Results - last 24 hr 09/19/18 09/20/18 09/20/18 12:46 07:22 07:23 Hgb 13.8 L 12.8 L Hct 40.3 L 37.4 L Sodium 139 Potassium 3.6 Chloride 104 Carbon Dioxide 29 Anion Gap 7.0 BUN 14 Creatinine 0.90 Est Cr Clr Drug Dosing 109.2 Est GFR ( Amer) 104.2 Est GFR (Non-Af Amer) 89.9 BUN/Creatinine Ratio 15.1 Glucose 95 Calcium 8.4 L
[2018-09-20] MEDS: ONDANSETRON INJ 2 MG/ML 2 ML VIAL IV PRN (12:21)
[2018-09-20 15:09] VITALS: BP 149/85; PULSE 77; TEMP 98.6
--- NOTE | 2018-09-20 17:41 | Discharge Summary ---
Date of Service September 20, 2018 Admission HPI Per Admitting Provider The patient is a 63-year-old male who presents to the emergency department with worsening left-sided flank pain, nausea, vomiting, and sweats that began shortly after lithotripsy earlier in the day. He did try to take a Percocet but reports that the medication did not control his pain. Dr. Elise was initially contacted by the emergency department, and then I spoke with him, and he asked that the patient be admitted to the medical service for pain control and that he would see the patient in morning. Principal Diagnosis Perinephric hematoma Discharge Exam General he is awake alert oriented x3 pleasant no distress. HEENT normocephalic atraumatic mucous membranes are moist. Breathing is unlabored no accessory muscle use. Skin shows no rashes no pallor or icterus. Discharge Data Allergies Allergy/AdvReac Type Severity Reaction Status Date / Time Sulfa (Sulfonamide Allergy Intermediate Rash Verified 09/18/18 23:36 Antibiotics) red dye Allergy Unknown RED DYE 40 Verified 09/18/18 23:36 -BLURRED VISION tramadol Allergy Unknown ITCHING Verified 09/18/18 23:36 Consultations 09/19/18 02:00 ED Decision to Admit Stat 09/19/18 02:30 Consult Urology Stat 09/19/18 04:30 Consult Case Management - Discharge Planning Routine Consult Urology Routine Ordered Studies 09/18/18 23:08 CT abd pelvis IV con only Urgent ABDOMEN AND PELVIS CT WITH IV CONTRAST CT DOSE: 1182.25 mGy.cm HISTORY: L flank pain s/p lithotripsy TECHNIQUE: Multiaxial CT images of the abdomen and pelvis were performed following the use of intravenous contrast. A dose lowering technique was utilized adhering to the principles of ALARA. COMPARISON STUDY: Abdomen and pelvis CT 04/03/2018. FINDINGS: Bibasilar linear densities consistent with subsegmental atelectasis. No fractures within the visualized osseous structures. The spleen, adrenal glands, and pancreas are unremarkable. A few punctate stones within the gallbladder. Hepatic steatosis. There are 2 small hypodense lesions within the liver, unchanged. These favor cysts. The prostate gland is enlarged. Small fat- containing left inguinal hernia. The prostate gland is enlarged. No retroperitoneal lymphadenopathy. Bilateral renal cysts are again noted. There are are a few small stones within the lower pole of the right kidney. No right- sided hydronephrosis. There are few punctate stones within the bladder. There are a few stones within the left renal pelvis and distal left ureter near the ureterovesical junction. Dominant stone on image 374 measures 4 mm. There is mild left hydroureter without significant hydronephrosis. Left perinephric edema. There is also a small amount of edema/hemorrhage tracking along the left anterior psoas muscle. There is a left renal subcapsular/perinephric hematoma. This results in mild mass effect along the left kidney. This measures a maximal thickness of 2.6 cm. There is a punctate nonobstructing stone within the upper pole of the left kidney. No bowel wall thickening or obstruction. IMPRESSION: 1. Moderate to large left renal subcapsular/perinephric hematoma. This results in mild mass effect along the left kidney raising the possibility of a page kidney. 2. Bilateral nephrolithiasis. 3. Multiple small stones within the left renal pelvis and distal left ureter/left ureterovesical junction. This results in mild left hydroureter without significant hydronephrosis. 4. Small amount of edema/hemorrhage tracking along the left anterior psoas muscle. 5. Cholelithiasis. 6. Additional findings as described above. Lab Results 09/18/18 09/18/18 09/18/18 Range/Units 23:30 23:50 23:50 WBC 15.44 H (4.8-10.8) K/uL RBC 4.83 (4.7-6.1) M/uL Hgb 14.5 (14.0-18.0) g/dL POC Hgb (14.0-18.0) g/dl Hct 42.6 (42-52) % POC Hct (42-52) % MCV 88.2 (80-100) fL MCH 30.0 (25-34) pg MCHC 34.0 (32-36) g/dL RDW Std Deviation 43.4 (36.4-46.3) fL RDW Coeff of Makayla 13.5 (11.5-14.5) % Plt Count 195 (130-400) K/uL MPV 11.2 H (7.4-10.4) fL Immature Gran % (Auto) 0.3 % Neut % (Auto) 88.9 % Lymph % (Auto) 4.7 % [place] % (Auto) 6.0 % Eos % (Auto) 0.0 % Baso % (Auto) 0.1 % Immature Gran # (Auto) 0.04 H (0.00-0.02) K/uL Neut # (Auto) 13.75 H (1.4-6.5) K/uL Lymph # (Auto) 0.72 L (1.2-3.4) K/uL [place] # (Auto) 0.92 H (0.11-0.59) K/uL Eos # (Auto) 0.00 (0-0.5) K/uL Baso # (Auto) 0.01 (0-0.2) K/uL POC Sodium (135-144) mEq/L Sodium 139 (136-145) mmol/L POC Potassium (3.3-5.0) mEq/L Potassium 3.7 (3.5-5.1) mmol/L POC Chloride (101-112) mEq/L Chloride 106 (98-107) mmol/L Carbon Dioxide 24 (21-32) mmol/L POC Total CO2 (24-31) mEq/l Anion Gap 9.0 (3-11) POC Anion Gap (16-25) mmol/L POC BUN (7-18) mg/dl BUN 12 (7-18) mg/dl Creatinine 1.09 (0.6-1.4) mg/dl POC Creatinine (0.6-1.3) mg/dl Est Cr Clr Drug Dosing 90.6 ml/min Est GFR ( Amer) 82.7 Est GFR (Non-Af Amer) 71.4 BUN/Creatinine Ratio 10.6 (10-20) Glucose 136 H (70-99) mg/dl POC Glucose (other) (70-99) mg/dl Calcium 8.6 (8.5-10.1) mg/dl POC Ioniz Calcium Clara (1.12-1.32) mmol/l Total Bilirubin 0.5 (0.2-1) mg/dl AST 16 (15-37) U/L ALT 40 (12-78) U/L Alkaline Phosphatase 72 (45-117) U/L Total Protein 7.4 (6.4-8.2) gm/dl Albumin 3.6 (3.4-5.0) gm/dl Globulin 3.8 (2.5-4.0) gm/dl Albumin/Globulin Ratio 0.9 (0.9-2) Lipase 69 L (73-393) U/L Urine Color Yellow Urine Appearance Clear (Clear) Urine pH 5.5 (4.5-7.5) Ur Specific [place] 1.022 (1.000-1.030) Urine Protein Negative (Negative) Urine Glucose (UA) Negative (Negative) Urine Ketones Negative (Negative) Urine Blood 3+ H (Negative) Urine Nitrite Negative (Negative) Urine Bilirubin Negative (Negative) Urine Urobilinogen Negative (Negative) Ur Leukocyte Esterase Negative (Negative) Urine WBC (Auto) 1-5 (0-5) /hpf Urine RBC (Auto) >30 H (0-4) /hpf U Hyaline Cast (Auto) 0 (0-5) /lpf U Epithel Cells (Auto) 0-5 (0-5) /lpf Urine Bacteria (Auto) Negative (Negative) 09/19/18 09/19/18 09/20/18 Range/Units 00:02 12:46 07:22 WBC (4.8-10.8) K/uL RBC (4.7-6.1) M/uL Hgb 13.8 L 12.8 L (14.0-18.0) g/dL POC Hgb 14.3 (14.0-18.0) g/dl Hct 40.3 L 37.4 L (42-52) % POC Hct 42 (42-52) % MCV (80-100) fL MCH (25-34) pg MCHC (32-36) g/dL RDW Std Deviation (36.4-46.3) fL RDW Coeff of Makayla (11.5-14.5) % Plt Count (130-400) K/uL MPV (7.4-10.4) fL Immature Gran % (Auto) % Neut % (Auto) % Lymph % (Auto) % [place] % (Auto) % Eos % (Auto) % Baso % (Auto) % Immature Gran # (Auto) (0.00-0.02) K/uL Neut # (Auto) (1.4-6.5) K/uL Lymph # (Auto) (1.2-3.4) K/uL [place] # (Auto) (0.11-0.59) K/uL Eos # (Auto) (0-0.5) K/uL Baso # (Auto) (0-0.2) K/uL POC Sodium 140 (135-144) mEq/L Sodium (136-145) mmol/L POC Potassium 3.6 (3.3-5.0) mEq/L Potassium (3.5-5.1) mmol/L POC Chloride 102 (101-112) mEq/L Chloride (98-107) mmol/L Carbon Dioxide (21-32) mmol/L POC Total CO2 23 L (24-31) mEq/l Anion Gap (3-11) POC Anion Gap 19.0 (16-25) mmol/L POC BUN 11 (7-18) mg/dl BUN (7-18) mg/dl Creatinine (0.6-1.4) mg/dl POC Creatinine 1.0 (0.6-1.3) mg/dl Est Cr Clr Drug Dosing ml/min Est GFR ( Amer) Est GFR (Non-Af Amer) BUN/Creatinine Ratio (10-20) Glucose (70-99) mg/dl POC Glucose (other) 143 H (70-99) mg/dl Calcium (8.5-10.1) mg/dl POC Ioniz Calcium [place] 1.16 (1.12-1.32) mmol/l Total Bilirubin (0.2-1) mg/dl AST (15-37) U/L ALT (12-78) U/L Alkaline Phosphatase (45-117) U/L Total Protein (6.4-8.2) gm/dl Albumin (3.4-5.0) gm/dl Globulin (2.5-4.0) gm/dl Albumin/Globulin Ratio (0.9-2) Lipase (73-393) U/L Urine Color Urine Appearance (Clear) Urine pH (4.5-7.5) Ur Specific [place] (1.000-1.030) Urine Protein (Negative) Urine Glucose (UA) (Negative) Urine Ketones (Negative) Urine Blood (Negative) Urine Nitrite (Negative) Urine Bilirubin (Negative) Urine Urobilinogen (Negative) Ur Leukocyte Esterase (Negative) Urine WBC (Auto) (0-5) /hpf Urine RBC (Auto) (0-4) /hpf U Hyaline Cast (Auto) (0-5) /lpf U Epithel Cells (Auto) (0-5) /lpf Urine Bacteria (Auto) (Negative) 09/20/18 Range/Units 07:23 WBC (4.8-10.8) K/uL RBC (4.7-6.1) M/uL Hgb (14.0-18.0) g/dL POC Hgb (14.0-18.0) g/dl Hct (42-52) % POC Hct (42-52) % MCV (80-100) fL MCH (25-34) pg MCHC (32-36) g/dL RDW Std Deviation (36.4-46.3) fL RDW Coeff of Makayla (11.5-14.5) % Plt Count (130-400) K/uL MPV (7.4-10.4) fL Immature Gran % (Auto) % Neut % (Auto) % Lymph % (Auto) % [place] % (Auto) % Eos % (Auto) % Baso % (Auto) % Immature Gran # (Auto) (0.00-0.02) K/uL Neut # (Auto) (1.4-6.5) K/uL Lymph # (Auto) (1.2-3.4) K/uL [place] # (Auto) (0.11-0.59) K/uL Eos # (Auto) (0-0.5) K/uL Baso # (Auto) (0-0.2) K/uL POC Sodium (135-144) mEq/L Sodium 139 (136-145) mmol/L POC Potassium (3.3-5.0) mEq/L Potassium 3.6 (3.5-5.1) mmol/L POC Chloride (101-112) mEq/L Chloride 104 (98-107) mmol/L Carbon Dioxide 29 (21-32) mmol/L POC Total CO2 (24-31) mEq/l Anion Gap 7.0 (3-11) POC Anion Gap (16-25) mmol/L POC BUN (7-18) mg/dl BUN 14 (7-18) mg/dl Creatinine 0.90 (0.6-1.4) mg/dl POC Creatinine (0.6-1.3) mg/dl Est Cr Clr Drug Dosing 109.2 ml/min Est GFR ( Amer) 104.2 Est GFR (Non-Af Amer) 89.9 BUN/Creatinine Ratio 15.1 (10-20) Glucose 95 (70-99) mg/dl POC Glucose (other) (70-99) mg/dl Calcium 8.4 L (8.5-10.1) mg/dl POC Ioniz Calcium Clara (1.12-1.32) mmol/l Total Bilirubin (0.2-1) mg/dl AST (15-37) U/L ALT (12-78) U/L Alkaline Phosphatase (45-117) U/L Total Protein (6.4-8.2) gm/dl Albumin (3.4-5.0) gm/dl Globulin (2.5-4.0) gm/dl Albumin/Globulin Ratio (0.9-2) Lipase (73-393) U/L Urine Color Urine Appearance (Clear) Urine pH (4.5-7.5) Ur Specific [place] (1.000-1.030) Urine Protein (Negative) Urine Glucose (UA) (Negative) Urine Ketones (Negative) Urine Blood (Negative) Urine Nitrite (Negative) Urine Bilirubin (Negative) Urine Urobilinogen (Negative) Ur Leukocyte Esterase (Negative) Urine WBC (Auto) (0-5) /hpf Urine RBC (Auto) (0-4) /hpf U Hyaline Cast (Auto) (0-5) /lpf U Epithel Cells (Auto) (0-5) /lpf Urine Bacteria (Auto) (Negative) Hospital Course (1) Perinephric hematoma: Large left perinephric hematoma/status post lithotripsy for kidney stones-- Pain control is adequate, creatinine is stable, hemoglobin is stable. Stable for discharge to home. (2) History of kidney stones: As above. (3) Hypothyroidism (acquired): Continue levothyroxine 125 mcg p.o. every morning. Total Time Total Time Spent Total Time Spent (In Minutes): Less than 30 Discharge Plan Discharge Items Patient Disposition: Home - Self-Care Reason For Visit: perinephric hematoma Discharge Diagnosis: perinephric hematoma (bleeding around the kidney) Condition: Fair Discharge Goals: Decrease discomfort Activity: Resume your previous activity Activity Comment: take it easy, don't push too hard until you're feeling better Non-emergency contact: Primary Care Provider Call non-emergency contact if: you have any medication questions, your symptoms worsen, your pain is not controlled and your temperature is above 101 Follow-up/Referrals: Finesse Kilgore MD [Primary Care Provider] - Diet: Regular Addtl Provider Instructions: gradually work your way back to normal activity - there are no formal restrictions, just "common sense" of if it feels like you're doing too much, you probably are. as far as pain goes, take the oxycodone/acetaminophen (prescribed by Dr Elise at the visit for your lithotripsy) up to every 6 hours as needed, the expectation will be that you'll probably need a few the next day or two, then probably quickly be able to reduce from there. Prescriptions: Continued levothyroxine 175 mcg Tablet 175 mcg PO QAM RF: 0 aspirin [Aspirin Low Dose] 81 mg Tablet,Delayed Release (Dr/Ec) 162 mg PO QAM RF: 0 oxycodone-acetaminophen 5-325 mg tablet 1 tab PO Q6H PRN (Reason: pain) Qty: 20 RF: 0 Discontinued oxycodone 5 mg tablet 5 mg PO Q6H PRN (Reason: Pain) RF: 0 Stand-Alone Forms: [facility], Opioid Pain [facility] Discharge Orders: Discharge Order (Routine); Ordered 09/20/18 Ordered By: Bernard Sr Admission Data Admit Date/Time: 09/19/18 03:17 Attending Provider: Bernard Sr Admit Provider: Caleb Patterson Primary Care Provider: Finesse Kilgore Other Providers: Kane Elise ; Caleb Patterson Service: Surgical Services Other Interventions: Discharge Summary Assessment (RN) Last Done: 09/20/18 15:15 DC Date/Time DO NOT enter until pt leaves facility: 09/20/18 16:04
== END 2018-09-20 16:04 | disposition home or self-care (01) | DRG 920 ==
LOC: ED 22:56 → 3W 09-19 03:17 → SUATTDRO 09-19 03:17 → 3W 09-19 04:01